=== PATIENT | female | born 1945 | race Caucasian/White ===

== ENCOUNTER 2017-11-13 13:49 | Inpatient (IN) | payer MEDICARE, MEDICAID ==
--- NOTE | 2017-11-13 14:12 | ED Physician Chart ---
ED Chief Complaint/HPI - Patient Information Date Seen:: 11/13/17 Time Seen:: 14:00 Chief Complaint:: Agitation History of Present Illness:: onset x 3 days of agitation and hostile behavior; no report of trauma, H/As, neck pain, C/P, SOB, Abd. Pain, SIs, A/N/V/D/C, fever, chills, or urinary s/s Historian:: Patient, EMS Review:: Nurse's Note Reviewed, Old Chart Reviewed, EMS run form Reviewed ED Review of Systems - Review of Systems General/Constitutional: No fever, No chills, No weight loss, No weakness, No diaphoresis, No edema, No loss of appetite Skin: No skin lesions, No rash, No bruising Head: No headache, No light-headedness Eyes: No loss of vision, No pain, No diplopia ENT: No earache, No nasal drainage, No sore throat, No tinnitus Neck: No neck pain, No swelling, No thyromegaly, No stiffness, No mass noted Cardio Vascular: No chest pain, No palpitations, No PND, No orthopnea, No edema Pulmonary: No SOB, No cough, No sputum, No wheezing GI: No nausea, No vomiting, No diarrhea, No pain, No melena, No hematochezia, No constipation, No hematemesis G/U: No dysuria, No frequency, No hematuria, No nacturia Hyperion Administrator: No vaginal discharge, No abnormal vaginal bleed, No contraction Musculoskeletal: No bone or joint pain, No back pain, No muscle pain Endocrine: No polyuria, No polydipsia Psychiatric: Prior psych history, Depression, Anxiety, No suicidal ideation, No homicidal ideation, No auditory hallucination, No visual hallucination Hematopoietic: No bruising, No lymphadenopathy Allergic/Immuno: No urticaria, No angioedema Neurological: No syncope, No focal symptoms, No weakness, No paresthesia, No headache, No seizure, No dizziness, No confusion, No vertigo ED Past Medical History - Past Medical History Obtainable: Yes Past Medical History: HTN, Asthma/COPD, Dyslipidemia, PUD/GERD Family History: HTN Social History: Non Smoker, No Alcohol, No Drug Use, Single, Care Facility Surgical History: None Psychiatricy History: Depression, Bipolar Medication: Reviewed Family Medical History - Family Member Mother History Unknown: Yes ED Physical Exam - Physical Examination General/Constitutional: Awake, Well-developed, well-nourished, Alert, No distress, GCS 15, Non-toxic appearing, Ambulatory Head: Atraumatic Eyes: Lids, conjuctiva normal, PERRL, EOMI Skin: Nl inspection, No rash, No skin lesions, No ecchymosis, Well hydrated, No lymphadenopathy ENMT: External ears, nose nl, TM canals nl, Nasal exam nl, Lips, teeth, gums nl , Oropharynx nl, Tonsils nl Neck: Nontender, Full ROM w/o pain, No JVD, No nuchal rigidity, No bruit, No mass, No stridor Respiratory: Nl effort/Exclusion, Clear to Auscultation, No Wheeze/Rhonchi/Rales Cardio Vascular: RRR, No murmur, gallop, rubs, NL S1 S2, Carotid/Femoral/Distal pulses equal bilaterally GI: No tenderness/rebounding/guarding, No organomegaly, No hernia, Normal BS's, Nondistended, No mass/bruits, No McBurney tenderness : No CVA tenderness Extremities: No tenderness or effusion, Full ROM, normal strength in all extremities, No edema, Normal digits & nails Neuro/Psych: Alert/oriented, DTR's symmetric, Normal sensory exam, Normal motor strength, Judgement/insight normal, Mood normal, Normal gait, No focal deficits Other Neuro/Psych comments:: + Psychomotor Agitation; no SIs; Mood/Affect: Labile Misc: Normal back, No paraspinal tenderness ED Labs/Radiology/EKG Results - Lab Results Comments:: unremarkable - EKG Interpretations EKG Time:: 14:45 Rate & Rhythm: 92; NSR Comments:: non-specific st-t changes ED Septic Shock - . Is Septic Shock (SBP<90, OR Lactate>4 mmol\L) present?: No ED Reassessment (Disposition) - Reassessment Reassessment Condition:: Improved - Diagnosis Diagnosis:: Agitation; Psychosis; Medical Clearance; Bipolar Disorder; - Aftercare/Follow up Instructions Aftercare/Follow-Up Instructions:: Counseled pt regarding lab results/diagnosis & need follow up, Counseled pt & family regarding lab results/diagnosis & need follow up - Patient Disposition Discharge/Transfer:: Acute Care w/in this hosp Admitted to:: [facility] Condition at Disposition:: Stable, Improved
[2017-11-13 14:40] LABS: % BASOPHILS 0.4 % (0.0-2.0); % LYMPHOCYTES 31.9 % (20.0-50.0); % MONOCYTES 7.3 % (2.0-10.0); % NEUTROPHILS 55.4 % (40.0-80.0); EOSINOPHILE ABSOLUTE 0.3 Th/cmm (0.1-0.4); HEMATOCRIT 39.6 % (41.0-60); HEMOGLOBIN 13.3 gm/dL (12-16); LYMPHOCYTE ABSOLUTE 2.1 Th/cmm (1.5-3.0); MEAN CELL VOLUME 86.9 fl (81-100); MEAN CORPUSCULAR HEMOGLOBIN 29.1 pg (27.0-31.0); MEAN CORPUSCULAR HGB CONC 33.5 pg (28.0-36.0); MEAN PLATELET VOLUME 10.1 fl; MONOCYTE ABSOLUTE 0.5 Th/cmm (0.3-1.0); NEUTROPHILE ABSOLUTE 3.7 Th/cmm (1.8-8.0); PLATELET COUNT 172 Th/cmm (150-400); RED BLOOD COUNT 4.56 Mil/cmm (3.80-5.20); RED CELL DISTRIBUTION WIDTH 13.7 % (11.5-20.0); WHITE BLOOD COUNT 6.6 Th/cmm (4.8-10.8)
[2017-11-13 14:57] LABS: ALB/GLOB RATIO 1.5 (1.0-1.8); ALKALINE PHOSPHATASE 46 U/L (34-104); ANION GAP 11.9 (7.0-16.0); BILIRUBIN,TOTAL 0.5 mg/dL (0.3-1.0); BUN - UREA NITROGEN 34 mg/dL (7-25); CALCIUM SERUM 9.7 mg/dL (8.6-10.3); CARBON DIOXIDE 23.6 mEq/L (21.0-31.0); CHLORIDE 108 mEq/L (98-107); CHOLESTEROL 185 mg/dL (<200); CREATININE - SERUM 1.3 mg/dL (0.6-1.2); GLUCOSE 85 mg/dL (70-105); HDL -HIGH DENSITY LIPOPROTEIN 52 mg/dL (23-92); POTASSIUM SERUM 4.5 mEq/L (3.5-5.1); SGOT 11 U/L (13-39); SGPT/ALT 9 U/L (7-52); SODIUM SERUM 139 mEq/L (136-145); TOTAL PROTEIN,SERUM 6.7 gm/dL (6.0-8.3); TRIGLYCERIDES 121 mg/dL (<150)
[2017-11-13 15:00] LABS: ACETAMINOPHEN < 10.0 ug/mL (10.0-30.0); SALICYLATES (ASPIRIN) < 25.0 mg/L (30.0-100.0)
[2017-11-13] MEDS ORDERED: Magnesium Hydroxide (MOM) 30 mL UDC PO PRN ×2 (17:27→17:31)
[2017-11-13] MEDS ORDERED: Maalox 30 mL Cup PO PRN (17:27)
[2017-11-13 17:37] VITALS: BP 108/76
[2017-11-13 22:15] LABS: A1C % 5.5 % (4.0-6.0)
[2017-11-14] MEDS: Pantoprazole 40 mg EC Tab PO SCH (06:47)
[2017-11-14] MEDS ORDERED: Non-Formulary Item 1 EA (Amino Acids/Protein Hydrolys [Pro-Stat Sugar Free Liquid] 30 ML) PO SCH (09:00)
[2017-11-14] MEDS ORDERED: MELOXICAM PO SCH (09:00)
[2017-11-14] MEDS ORDERED: Maalox 30 mL Cup PO PRN (09:38)
[2017-11-14] MEDS: Multivitamin Tab PO SCH (09:41)
[2017-11-14] MEDS: Fish Oil 1,000 MG SGL PO SCH (09:41)
--- NOTE | 2017-11-14 20:44 | History & Physical ---
ADMIT DATE: 11/13/2017 INTERNAL MEDICINE CONSULTATION HISTORY OF PRESENT ILLNESS: The patient is a 72-year-old female, patient of mine, seen at [facility]. PAST MEDICAL HISTORY: Significant for peptic ulcer disease, gastritis, arthritis, osteoporosis and coronary artery disease. SOCIAL HISTORY: No history of smoking, alcohol abuse. FAMILY HISTORY: Not available. REVIEW OF SYSTEMS: The patient has no chest pain, no short of breath. No nausea, no vomiting, no abdominal pain, no urinary symptoms. PHYSICAL EXAMINATION: GENERAL: Average female, in obvious respiratory distress. VITAL SIGNS: Include a blood pressure of 110/70, heart rate 80, respiration rate of 18. SKIN: Show no cellulitis. HEENT: Normal conjunctivae. NECK: Supple. LUNGS: Clear. HEART: First and second present. ABDOMEN: Soft, minimal epigastric tenderness. Bowel sounds present. EXTREMITIES: Show arthritis. NEUROLOGIC: The patient has dementia. LABORATORY DATA: White count 6.6, hemoglobin 13.3, hematocrit 39.6, platelet count 172. Sodium 139, potassium 4.1, chloride 108, bicarb 23.6, BUN 34, creatinine of 1.3, glucose of 85. Troponins are negative. Cholesterol is normal. MEDICAL DIAGNOSES: Include peptic ulcer disease, gastritis, arthritis, osteoporosis, coronary artery disease, and chronic kidney disease. CURRENT MEDICINES: Include Tylenol, Maalox, Dulcolax, Os-Willy, Colace, omega-3, Protonix, risperidone. JOB# [id number]
--- NOTE | 2017-11-15 02:55 | Psychosocial Evaluation ---
DATE OF SERVICE: 11/13/2017 IDENTIFYING DATA: The patient is a 72-year-old woman, resident of ____ was sent home. Information obtained by directly interviewing the patient as well as reviewing the admission papers. JUSTIFICATION FOR HOSPITALIZATION: The patient is admitted here for acute agitation. CHIEF COMPLAINT: "I don't know. I am not able to sleep." HISTORY OF PRESENT ILLNESS: This is the first psychiatric hospitalization to [facility] to [facility] for this patient who is reported to have been getting easily agitated at the residential facility and the patient could not be contained and the patient has to be admitted over here for stabilization because the patient is not stabilized in the lower level of care. Chart is reviewed. The patient is interviewed. The patient is reported to have been valproic acid and Risperdal. The patient has been having difficult time to cope with the stress. The patient is reported to be on Risperdal and Depakote and has been able to tolerate the medications. No major side effects to the medications are noted. However, the patient has been complaining that she is not able to fall asleep and losing her appetite. The patient is reported to be also wondering and when redirected patient has been getting easily upset. PAST PSYCHIATRIC HISTORY: Details are not known. MEDICAL HISTORY: Physical examination is requested by Dr. Hicks. SUBSTANCE ABUSE HISTORY: None. PHYSICAL OR SEXUAL ABUSE HISTORY: None. LEGAL PROBLEMS: None at this time. STRENGTH AND ASSETS: The patient is motivated. MENTAL STATUS EXAMINATION: The patient is a 72-year-old, looking her stated age, superficially cooperative. Eye contact is poor. Mood is noted to be irritable. Affect is constricted. Insight and judgment at this time are noted to be impaired. Impulse control seems to be poor. Coping skills are also noted to be very poor. The patient has been having difficult time to cope with the stress. The patient has paranoia, but denies any command hallucinations. No visual hallucinations are reported. The patient's short and long-term are noted to be impaired. DIAGNOSTIC IMPRESSION: AXIS I: Psychotic disorder, not otherwise specified. AXIS IB. Dementia and behavioral changes, secondary to it. AXIS II: None. AXIS II: As per Dr. Hicks. IMMEDIATE TREATMENT PLAN: The patient is going to be observed on the inpatient unit, probably with supportive psychotherapy. The patient is going to be closely monitored. Encouraged to verbalize the concerns. Once stabilized, the patient is going to be discharged to self to be followed up on an outpatient basis. JOB# [id number]
[2017-11-15] MEDS: Pantoprazole 40 mg EC Tab PO SCH (06:32)
[2017-11-15] MEDS: Fish Oil 1,000 MG SGL PO SCH (09:34)
[2017-11-15] MEDS: Multivitamin Tab PO SCH (09:36)
--- NOTE | 2017-11-15 23:28 | Consultation ---
DATE OF CONSULTATION: 11/15/2017 REFERRING PHYSICIAN: Shama Cisse MD TYPE OF CONSULTATION: Psychology. HISTORY OF PRESENT ILLNESS: The patient is a 72-year-old female. The following is by review of the medical record as well as by the patient's self-report. The patient is being admitted due to acute agitation. The patient is a resident of [facility]. The patient has poor insight into her illness and does not understand why she is being hospitalized. The staff at the patient's residential facility report that she had been getting easily agitated with the staff. The patient denied any suicidal ideation, plan or intention. The patient was complaining about poor sleep. The patient appears to be confused about the hospital admission as well as her medical and psychiatric history. PAST MEDICAL HISTORY: Please see history and physical by Dr. Hicks. PAST PSYCHIATRIC HISTORY: Records are unavailable at the time of this clinical interview. SUBSTANCE ABUSE HISTORY: The patient did not answer this question. PSYCHOSOCIAL HISTORY: The patient did not answer questions about occupational or educational history or confucianist affiliation. The patient did not answer questions about physical or sexual abuse history. The patient stated no current legal problems or issues. The patient is a resident of [facility]. MENTAL STATUS EXAMINATION: The patient appears to be her stated age. The patient's attitude is superficially cooperative. Eye contact is poor. Speech is slow and delayed. Mood is irritable. Affect is constricted. The patient denied any auditory or visual hallucinations. The patient denied any suicidal ideation, plan or intention. The patient seems to have paranoid ideation. This needs further evaluation. The patient was unable to repeat 3 items given to her first and second time. The patient was unable to recall any of the 3 items given. The patient could not give her correct date of , although she did give her correct age. The patient really did not respond to the other questions to assess for a long-term memory. Short term memory and immediate memory are impaired. Long-term memory is possibly impaired. Sensorium is alert and oriented to self only. The patient's impulse control is limited. Concentration is poor. The patient did not participate in the interpretation of proverbs. Insight is poor. Judgment is poor. DIAGNOSTIC IMPRESSION: Hayden I: 1. Psychotic disorder, not otherwise specified. 2. Dementia with behavioral disturbance. Hayden II: Deferred. Hayden III: Per Dr. Hicks. TREATMENT PLAN: The patient has been seen by Dr. Cisse for psychiatric evaluation and for the management of the patient's psychotropic medications. We will provide supportive psychotherapy to include reality orientation, differentiation and integration. We will provide coping strategies for phase of life issues. We will provide motivational enhancement for the patient to become compliant and stay compliant with all aspects of the patient's care and treatment plan. We will encourage the patient to contract for safety as well as demonstrate emotional and self-regulation prior to discharge. Thank you, Dr. Cisse for this consult and the opportunity to participate in this patient's care. JOB# [id number] AVISHALI
--- NOTE | 2017-11-16 05:03 | Progress Notes ---
DATE: 11/15/2017 PSYCHIATRIC PROGRESS NOTE SUBJECTIVE: Staff was spoken to. The patient is interviewed. Mood is noted to be irritable. Affect is constricted. Insight and judgment at this time are noted to be still impaired. Impulse control is noted to be limited. The patient has paranoia, but denies any command hallucinations. The patient is currently on risperidone 1 mg b.i.d. and the patient is going to be closely monitored. The patient's valproic acid is at 250 mg twice a day. ASSESSMENT: The patient is still paranoid and impulsive. PLAN: To continue the patient with the supportive therapy and closely monitor the patient. JOB# [id number]
[2017-11-16] MEDS: Pantoprazole 40 mg EC Tab PO SCH (06:32)
[2017-11-16] MEDS: Multivitamin Tab PO SCH (08:56)
[2017-11-16] MEDS: Fish Oil 1,000 MG SGL PO SCH (08:56)
--- NOTE | 2017-11-16 16:15 | Progress Notes ---
DATE: 11/16/2017 SUBJECTIVE: Staff was spoken to. The patient is interviewed. Mood is noted to be anxious ____. Insight and judgment at this time are noted to be still impaired. Impulse control is noted to be poor. Coping skills has been noted to be very paranoid. No side effects to the medications are noted. The patient is currently on Risperdal 1 mg b.i.d. and valproic acid 1 mg b.i.d. and the patient is not presenting with any of the EPS and hence we decided to discontinue the benztropine and follow the patient with the supportive therapy. ASSESSMENT AND PLAN: Please note that the patient is still paranoid and agitated and not ready to be discharged to a lower level of care yet. JOB# [id number]
--- NOTE | 2017-11-17 06:25 | Progress Notes ---
DATE: 11/16/2017 INTERNAL MEDICINE CONSULTATION FOLLOWUP SUBJECTIVE: Seen at [facility]. The patient had no chest pain, no shortness of breath, no nausea, no vomiting, no melena, no hematochezia. OBJECTIVE: VITAL SIGNS: Stable. LUNGS: Clear. HEART: First and second present. ABDOMEN: Soft. Bowel sounds good. EXTREMITIES: Show arthritis. NEUROLOGIC: The patient has dementia. MEDICAL DIAGNOSES: Remain the same as arthritis, peptic ulcer disease, osteoporosis, coronary artery disease. Psych consult reviewed. Continue the current medical management. JOB# [id number]
[2017-11-17] MEDS: Pantoprazole 40 mg EC Tab PO SCH (06:38)
[2017-11-17] MEDS: Fish Oil 1,000 MG SGL PO SCH (09:17)
[2017-11-17] MEDS: Multivitamin Tab PO SCH (09:17)
--- NOTE | 2017-11-17 19:45 | Progress Notes ---
DATE: 11/17/2017 SUBJECTIVE: Staff was spoken to. The patient is interviewed. Mood is noted to be irritable. Affect is constricted. Impulse control seems to be improving at this time. The patient, however, is noted to be getting easily frustrated. Paranoid delusions are noted, but the patient denies any command hallucinations. No major side effects to the medications are noted. The patient's sleep and appetite are noted to be improving. ASSESSMENT: The patient is still paranoid. PLAN: To continue the patient with the supportive therapy and followup. JOB# [id number]
--- NOTE | 2017-11-17 22:25 | Progress Notes ---
DATE: 11/17/2017 This is a progress note for Internal Medicine consultation SUBJECTIVE: The patient is a 72-year-old female seen at [facility]. This is progress note for Internal Medicine consultation. No new symptoms. No chest pain, no shortness of breath, no nausea, no vomiting. OBJECTIVE: GENERAL: The patient is very confused. VITAL SIGNS: Stable. LUNGS: Clear. HEART: First and second present. ABDOMEN: Soft, bowel sounds present. EXTREMITIES: Show arthritis. NEUROLOGIC: The patient awake, no focal motor deficit. MEDICAL DIAGNOSES: Remain the same, coronary artery disease, peptic ulcer disease, arthritis, osteoporosis. TREATMENT PLAN: Continue medicines as per JUL. Psych consult reviewed. End of the Internal Medicine consult. The patient will follow up. JOB# [id number]
[2017-11-18] MEDS: Pantoprazole 40 mg EC Tab PO SCH (06:40)
[2017-11-18] MEDS: Multivitamin Tab PO SCH (09:32)
[2017-11-18] MEDS: Fish Oil 1,000 MG SGL PO SCH (09:33)
--- NOTE | 2017-11-19 00:01 | Progress Notes ---
DATE: 11/18/2017 INTERNAL MEDICINE CONSULT The patient is a 72-year-old female. CURRENT MEDICAL PROBLEMS: Coronary artery disease, peptic ulcer disease, arthritis, osteoporosis, no new symptoms. PHYSICAL EXAMINATION: VITAL SIGNS: Stable. LUNGS: Clear. HEART: First and second present. ABDOMEN: Soft. Bowel sounds present and good. EXTREMITIES: Show arthritis. NEUROLOGIC: The patient has dementia. MEDICAL DIAGNOSES: As I dictated above. MANAGEMENT: Continue current medical management. Psych consult reviewed. JOB# [id number]
--- NOTE | 2017-11-19 02:12 | Progress Notes ---
DATE: 11/18/2017 SUBJECTIVE: Staff was spoken to. The patient is interviewed. Mood is noted to be irritable. Affect is constricted. The patient has paranoia, but denies any command hallucinations, mood swings are a concern at this time. The patient is getting easily frustrated and stating that she should not be in here, she should be at home. ASSESSMENT: The patient is still impulsive and paranoid. PLAN: To continue the patient with the supportive therapy and followup. JOB# [id number]
[2017-11-19] MEDS: Pantoprazole 40 mg EC Tab PO SCH (06:46)
[2017-11-19] MEDS: Multivitamin Tab PO SCH (08:49)
[2017-11-19] MEDS: Fish Oil 1,000 MG SGL PO SCH (08:49)
[2017-11-20] MEDS: Pantoprazole 40 mg EC Tab PO SCH (06:34)
[2017-11-20] MEDS: Multivitamin Tab PO SCH (09:38)
[2017-11-20] MEDS: Fish Oil 1,000 MG SGL PO SCH (09:38)
--- NOTE | 2017-11-20 15:31 | Progress Notes ---
DATE: 11/19/2017 INTERNAL MEDICINE CONSULTATION PROGRESS The patient is a 72-year-old female seen at [facility]. PAST MEDICAL HISTORY: Significant for coronary artery disease, peptic ulcer disease, arthritis, osteoporosis. CHIEF COMPLAINT: No new symptoms. OBJECTIVE: VITAL SIGNS: Stable. LUNGS: Clear. HEART: First and second present. ABDOMEN: Soft. Bowel sounds are good. EXTREMITIES: Show arthritis. NEUROLOGIC: No focal deficit. MEDICAL DIAGNOSIS: Remain the same. PLAN: Continue current management. Discussed with social sciences instructor Judith regarding discharge placement. Conservators have agreed. The patient be transferred to [facility] to [facility]. JOB# [id number]
--- NOTE | 2017-11-20 23:28 | Progress Notes ---
DATE: 11/20/2017 PSYCHIATRIC PROGRESS NOTE SUBJECTIVE: Staff was spoken to. The patient is interviewed. Mood is irritable. Affect is constricted. Coping skills are noted poor at this time. The patient has been getting easily frustrated. The patient has been informed that we are trying to get in touch with her ____ for placement. The patient has not been able to understand. ASSESSMENT AND PLAN: The patient is agitated and paranoid at this time. Provided the patient with supportive therapy. Encouraged the patient to verbalize the concerns rather than to act out. JOB# [id number]
--- NOTE | 2017-11-21 02:26 | Consultation ---
DATE OF CONSULTATION: 11/20/2017 INTERNAL MEDICINE CONSULTATION SUBJECTIVE: A 72-year-old female. CHIEF COMPLAINT: No chest pain, no short of breath. No nausea, no vomiting, no abdominal pain, no recent fall. No acute infection. OBJECTIVE: VITAL SIGNS: Stable. LUNGS: Clear. HEART: First and second present. ABDOMEN: Soft. Bowel sounds are good. MUSCULOSKELETAL: Show arthritis. NEUROLOGICAL: The patient has had dementia. MEDICAL DIAGNOSES: Include coronary artery disease, peptic ulcer disease, gastritis, arthritis, osteoporosis. TREATMENT PLAN: Continue current medical management. Psych consult reviewed. The patient will followup JOB# [id number]
[2017-11-21] MEDS: Pantoprazole 40 mg EC Tab PO SCH (06:50)
[2017-11-21] MEDS: Fish Oil 1,000 MG SGL PO SCH (08:43)
[2017-11-21] MEDS: Multivitamin Tab PO SCH (08:44)
--- NOTE | 2017-11-21 19:23 | Progress Notes ---
DATE: 11/21/2017 SUBJECTIVE: Staff was spoken to. The patient is interviewed. Mood is noted to be anxious. The patient is isolative and withdrawn. Coping skills are noted to be still improving. No side effects to medications are noted. The patient is currently on Risperdal 1 mg twice a day along with valproic acid 250 mg twice a day and has been able to tolerate it. No side effects to the medications are noted. Mood swings are coming under control. We are waiting for a letter from the conservator with regards to placement of this patient. ASSESSMENT: The patient's mood swings are coming under control. Awaiting placement. PLAN: To continue the patient with the supportive therapy and followup. [facility]# [id number]
--- NOTE | 2017-11-21 22:26 | Progress Notes ---
DATE: 11/21/2017 INTERNAL MEDICINE CONSULTATION FOLLOWUP CHIEF COMPLAINT: No new symptoms. No chest pain, no short of breath. No nausea, no vomiting, no abdominal pain. OBJECTIVE: On examination, GENERAL: An elderly female, in no obvious respiratory distress. VITAL SIGNS: Blood pressure 110/70, heart rate 88, respiration rate of 18. SKIN: Shows no cellulitis. HEENT: Normal conjunctivae. NECK: Supple. LUNGS: Clear. HEART: First and second present. ABDOMEN: Soft. Bowel sounds present. EXTREMITIES: Show arthritis. NEUROLOGIC: The patient has dementia. MEDICAL DIAGNOSES: Coronary artery disease, peptic ulcer disease, gastritis, arthritis, osteoporosis. TREATMENT PLAN: Continue on the current management. Psych consult reviewed. JOB# [id number]
[2017-11-22] MEDS: Pantoprazole 40 mg EC Tab PO SCH (06:36)
[2017-11-22] MEDS: Multivitamin Tab PO SCH (08:59)
[2017-11-22] MEDS: Fish Oil 1,000 MG SGL PO SCH (08:59)
--- NOTE | 2017-11-23 04:12 | Progress Notes ---
DATE: 11/22/2017 INTERNAL MEDICINE FOLLOWUP CONSULTATION The patient is a 72-year-old, seen at [facility]. CHIEF COMPLAINT: No chest pain, no short of breath. No nausea, no vomiting, no abdominal pain. No fall, no acute infection. PHYSICAL EXAMINATION: VITAL SIGNS: Stable. LUNGS: Clear. HEART: First and second present. ABDOMEN: Soft. Bowel sounds good. EXTREMITIES: Show arthritis. NEUROLOGIC: The patient has no focal motor deficits. MEDICAL DIAGNOSES: Include history of hypertension, history of coronary artery disease, peptic ulcer disease, gastritis, arthritis, history of CPA, chronic obstructive pulmonary disease, history of chronic kidney disease. The patient will continue medicines as per MAR, psych consult noted. [facility]# [id number]
--- NOTE | 2017-11-23 04:36 | Progress Notes ---
DATE: 11/22/2017 PSYCHIATRIC PROGRESS NOTE SUBJECTIVE: Staff was spoken to. The patient is interviewed. Mood is noted to be irritable. Affect is constricted. The patient is getting frustrated for being in here. The patient has been informed that she is going to be discharged once we get the paper from the conservator. The patient has no insight into her illness. Coping skills at this time are noted to be still poor. ASSESSMENT: The patient is still impulsive. PLAN: Continue the patient with the supportive therapy. I encouraged the patient to verbalize the concerns rather than to act out. JOB# [id number]
[2017-11-23] MEDS: Pantoprazole 40 mg EC Tab PO SCH (06:46)
[2017-11-23] MEDS: Fish Oil 1,000 MG SGL PO SCH (09:52)
[2017-11-23] MEDS: Multivitamin Tab PO SCH (09:58)
--- NOTE | 2017-11-24 00:02 | Progress Notes ---
DATE: 11/23/2017 PSYCHIATRIC PROGRESS NOTE SUBJECTIVE: Staff was spoken to. The patient is interviewed. Mood is noted to be irritable. Affect is constricted. Insight and judgment are noted to be still impaired. Impulse control is noted to be improving. No side effects to the medications are noted. The patient has been paranoid and has been demanding that she should be discharged. The patient has been again clearly informed of the paperwork that we are waiting on. The patient is currently on Risperdal and Depakote and has been able to tolerate the medication. ASSESSMENT: The patient's impulsivity is coming under control. PLAN: To continue the patient with the supportive therapy and await for the paperwork from the public guardian for placement of this patient. JOB# [id number]
--- NOTE | 2017-11-24 02:46 | Progress Notes ---
DATE: 11/23/2017 INTERNAL MEDICINE CONSULTATION FOLLOWUP CHIEF COMPLAINT: No chest pain, no short of breath, no nausea, and no vomiting. The patient is currently under psych treatment. OBJECTIVE: VITAL SIGNS: Stable. LUNGS: Clear. HEART: First and second present. ABDOMEN: Soft. Bowel sounds are present. EXTREMITIES: Show arthritis. NEUROLOGIC: The patient has dementia. MEDICAL DIAGNOSES: Include chronic obstructive pulmonary disease, hypertension, chronic kidney disease, coronary artery disease, peptic ulcer disease, arthritis, and osteoporosis. TREATMENT PLAN: Continue current medical management. Continue psych medicines. JOB# [id number]
[2017-11-24] MEDS: Pantoprazole 40 mg EC Tab PO SCH (06:44)
[2017-11-24] MEDS: Multivitamin Tab PO SCH (09:15)
[2017-11-24] MEDS: Fish Oil 1,000 MG SGL PO SCH (09:16)
--- NOTE | 2017-11-24 18:04 | Progress Notes ---
DATE: 11/24/2017 INTERNAL MEDICINE CONSULTATION FOLLOWUP No new symptom. PHYSICAL EXAMINATION: VITAL SIGNS: Stable. LUNGS: Clear. HEART: First and second present. ABDOMEN: Soft. Bowel sounds appeared good. EXTREMITIES: Show arthritis. NEUROLOGIC: The patient has no focal motor deficit. MEDICAL DIAGNOSIS: Remains same; history of hypertension, chronic obstructive pulmonary disease, coronary artery disease, peptic ulcer disease, gastritis, arthritis, and anemia. TREATMENT PLAN: Continue current medical treatment. Psych consult reviewed. JOB# [id number]
--- NOTE | 2017-11-24 23:08 | Progress Notes ---
DATE: 11/24/2017 PSYCHIATRIC PROGRESS NOTE SUBJECTIVE: Staff was spoken to. The patient is interviewed. Mood is noted to be dysphoric. Coping skills are noted to be still poor. The patient has been getting easily frustrated. Insight and judgment are noted to be still impaired. Impulse control seems to be improving. The patient has paranoia, but denies any command hallucinations. Mood swings are coming under control. No side effects to the medications are noted. The patient is currently on Risperdal and Depakote and has been able to tolerate the medication. The patient is awaiting placement and we are awaiting from the public guardian's office for the approval for the patient to be placed. ASSESSMENT: The patient is stabilizing. PLAN: To continue the patient with the supportive therapy and followup. JOB# [id number]
[2017-11-25] MEDS: Pantoprazole 40 mg EC Tab PO SCH (06:53)
[2017-11-25] MEDS: Fish Oil 1,000 MG SGL PO SCH (10:00)
[2017-11-25] MEDS: Multivitamin Tab PO SCH (10:01)
--- NOTE | 2017-11-26 00:16 | Progress Notes ---
DATE: 11/25/2017 PSYCHIATRIC PROGRESS NOTE SUBJECTIVE: Staff was spoken to. The patient is interviewed. Mood is noted to be anxious. Affect is appropriate. Not suicidal or homicidal. Insight and judgment are noted to be fair. Impulse control is also noted to be fair. No side effects to the medications are noted. The patient has been able to verbalize the concerns rather than to act out. ASSESSMENT: The patient is stabilizing. PLAN: To discharge the patient today for followup on an outpatient basis. JOB# [id number]
== END 2017-11-25 17:30 | DRG 884 ==
LOC: ER 13:49 → EDBD 13:49 → GERO2 15:28
PROVIDERS: ADMIT Psychiatry & Neurology Psychiatry; ATTEND Psychiatry & Neurology Psychiatry
DX: F03.91 Unspecified dementia, unspecified severity, with behavioral disturbance (principal); N18.9 Chronic kidney disease, unspecified; K27.9 Peptic ulcer, site unspecified, unspecified as acute or chronic, without hemorrhage or perforation; M19.90 Unspecified osteoarthritis, unspecified site; I25.10 Atherosclerotic heart disease of native coronary artery without angina pectoris; F29 Unspecified psychosis not due to a substance or known physiological condition; J44.9 Chronic obstructive pulmonary disease, unspecified; E78.5 Hyperlipidemia, unspecified; K21.9 Gastro-esophageal reflux disease without esophagitis; M81.0 Age-related osteoporosis without current pathological fracture; K29.70 Gastritis, unspecified, without bleeding; I12.9 Hypertensive chronic kidney disease with stage 1 through stage 4 chronic kidney disease, or unspecified chronic kidney disease; Z82.49 Family history of ischemic heart disease and other diseases of the circulatory system
CPT/HCPCS: 36415-UA; 80053-TC; 80061-TC; 80320-TC; 80329-TC; 83036-90; 84443-TC; 84484-TC; 85025-TC; 86592-TC; 93005; Z7610

== ENCOUNTER 2017-12-03 21:56 | Inpatient (IN) | payer MEDICARE, MEDICAID ==
[2017-12-03 22:48] LABS: HEMATOCRIT 37.4 % (41.0-60); HEMOGLOBIN 12.4 gm/dL (12-16); MEAN CELL VOLUME 87.8 fl (81-100); MEAN CORPUSCULAR HEMOGLOBIN 29.1 pg (27.0-31.0); MEAN CORPUSCULAR HGB CONC 33.2 pg (28.0-36.0); MEAN PLATELET VOLUME 9.3 fl; PLATELET COUNT 188 Th/cmm (150-400); RED BLOOD COUNT 4.25 Mil/cmm (3.80-5.20); RED CELL DISTRIBUTION WIDTH 14.1 % (11.5-20.0)
[2017-12-03 23:02] LABS: INR 1.14 (0.5-1.4)
[2017-12-03 23:07] LABS: ALB/GLOB RATIO 1.5 (1.0-1.8); ALBUMIN 3.9 gm/dL (3.7-5.3); ALKALINE PHOSPHATASE 32 U/L (34-104); ANION GAP 10.6 (7.0-16.0); BILIRUBIN,TOTAL 0.4 mg/dL (0.3-1.0); BUN - UREA NITROGEN 26 mg/dL (7-25); CALCIUM SERUM 9.7 mg/dL (8.6-10.3); CHLORIDE 104 mEq/L (98-107); CHOLESTEROL 184 mg/dL (<200); CREATININE - SERUM 1.1 mg/dL (0.6-1.2); GLUCOSE 97 mg/dL (70-105); HDL -HIGH DENSITY LIPOPROTEIN 46 mg/dL (23-92); POTASSIUM SERUM 4.6 mEq/L (3.5-5.1); SGOT 11 U/L (13-39); SGPT/ALT 9 U/L (7-52); SODIUM SERUM 135 mEq/L (136-145); TOTAL PROTEIN,SERUM 6.5 gm/dL (6.0-8.3); TRIGLYCERIDES 103 mg/dL (<150)
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
[2017-12-03 23:46] VITALS: BP 135/68
[2017-12-03] MEDS ORDERED: Magnesium Hydroxide (MOM) 30 mL UDC PO PRN (23:47)
[2017-12-03] MEDS ORDERED: Maalox 30 mL Cup PO PRN (23:47)
[2017-12-03 23:54] LABS: BAND NEUTROPHILE 1 % (0-10); EOSINOPHIL 4 % (0-5); LYMPHOCYTE 46 % (20-50); MONOCYTE 6 % (2-10); NEUTROPHILS 43 % (40-80); PLATELET ESTIMATE ADEQUATE (NORMAL)
[2017-12-04 01:33] LABS: ESR SEDIMENTATION SED RATE 10 mm/hr (0-30)
[2017-12-04] MEDS: Multivitamin Tab PO SCH (08:30)
[2017-12-04] MEDS ORDERED: Magnesium Hydroxide (MOM) 30 mL UDC PO PRN (12:38)
[2017-12-04] MEDS ORDERED: Maalox 30 mL Cup PO PRN ×2 (12:38)
--- NOTE | 2017-12-04 20:15 | History & Physical ---
ADMIT DATE: 12/03/2017 INTERNAL MEDICINE CONSULTATION The patient is a 72-year-old female, me being the primary care physician. PAST MEDICAL HISTORY: Significant for history of hypertension, coronary artery disease, chronic kidney disease, peptic ulcer disease, gastritis, arthritis, osteoporosis. SOCIAL HISTORY: No smoking or alcohol abuse. FAMILY HISTORY: Not available. REVIEW OF SYSTEMS: No chest pain, no short of breath. No nausea, no vomiting, no abdominal pain. The patient had extensive arthritic pain. No recent fall. PHYSICAL EXAMINATION: VITAL SIGNS: Stable. LUNGS: Clear. HEART: First and second present. ABDOMEN: Soft. Bowel sounds present. EXTREMITIES: Show arthritis. NEUROLOGIC: The patient has dementia. LABORATORY DATA: White count of 6, hemoglobin 12.4, hematocrit 37.4, platelet count of 188. Sodium 135, potassium 4.6, chloride 104, bicarbonate 25, BUN 26, creatinine of 1.1, glucose 97. MEDICAL DIAGNOSES: As dictated, hypertension, coronary artery disease, chronic kidney disease, peptic ulcer disease, gastritis, arthritis, osteoporosis. CURRENT MEDICATIONS: Include Maalox, Protonix, Tylenol, Ambien p.r.n. Thank you, Dr. Cisse for letting me see your patient. JOB# [id number]
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
[2017-12-05] MEDS ORDERED: Pantoprazole 40 mg EC Tab PO SCH (09:00)
[2017-12-05] MEDS: Docusate Sodium/Senna Tab PO SCH (09:09)
[2017-12-05] MEDS: Pantoprazole 40 mg EC Tab PO SCH (09:09)
[2017-12-05] MEDS: Multivitamin Tab PO SCH (09:10)
[2017-12-05] MEDS: Fish Oil 1,000 MG SGL PO SCH (09:10)
--- NOTE | 2017-12-05 19:48 | Progress Notes ---
DATE: 12/05/2017 SUBJECTIVE: Staff was spoken to. The patient is interviewed. Mood is noted to be irritable. Affect is constricted. The patient is confused. The confusion is more so towards the evening. The patient has paranoid delusions, but denies any command hallucinations. The patient's aggressive behavior is being closely monitored at this time. The patient is going to be started on 12.5 mg of the Seroquel twice a day and the patient is going to be followed up with the supportive therapy. JOB# [id number]
[2017-12-06] MEDS: Docusate Sodium/Senna Tab PO SCH (09:20)
[2017-12-06] MEDS: Pantoprazole 40 mg EC Tab PO SCH (09:20)
[2017-12-06] MEDS: Multivitamin Tab PO SCH (09:21)
[2017-12-06] MEDS: Fish Oil 1,000 MG SGL PO SCH (09:21)
--- NOTE | 2017-12-06 18:28 | Progress Notes ---
DATE: 12/06/2017 SUBJECTIVE: The patient is a 72-year-old female, no additional symptoms. No chest pain, no shortness of breath. No nausea, no vomiting, no palpitation, no dizziness, no fall. OBJECTIVE: VITAL SIGNS: Stable. LUNGS: Clear. HEART: First and second heart sounds normal. No gallop. present. ABDOMEN: Soft, minimal epigastric tenderness. Bowel sounds present and good. EXTREMITIES: Show arthritis. NEUROLOGIC: The patient has dementia. MEDICAL DIAGNOSES: Remain the same; hypertension, chronic kidney disease, chronic obstructive pulmonary disease, coronary artery disease, peptic ulcer disease, gastritis, arthritis, and anemia. PLAN: We will continue medical management. Psych consult reviewed. JOB# [id number]
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
[2017-12-07] MEDS: Fish Oil 1,000 MG SGL PO SCH (09:02)
[2017-12-07] MEDS: Pantoprazole 40 mg EC Tab PO SCH (09:02)
[2017-12-07] MEDS: Multivitamin Tab PO SCH (09:03)
[2017-12-07] MEDS: Docusate Sodium/Senna Tab PO SCH (09:03)
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
--- NOTE | 2017-12-07 17:21 | Progress Notes ---
DATE: 12/07/2017 DATE OF SERVICE: 12/07/2017 SUBJECTIVE: The patient is a 72-year-old female. No new symptoms. No vomiting, no diarrhea, no melena or hematochezia. OBJECTIVE: VITAL SIGNS: Stable. LUNGS: Clear. HEART: First and second heart sounds are normal. No gallop. . ABDOMEN: Soft. Bowel sounds good. EXTREMITIES: Show arthritis. NEUROLOGIC: The patient has dementia. MEDICAL DIAGNOSES: Remain the same; hypertension, chronic kidney disease, COPD, coronary artery disease, peptic ulcer disease, arthritis, anemia, and dementia. PLAN: Continue current medical management. Psych consult reviewed. JOB# [id number]
--- NOTE | 2017-12-07 17:49 | Progress Notes ---
DATE: 12/07/2017 SUBJECTIVE: Staff was spoken to. The patient is interviewed. Mood is noted to be irritable. Affect is constricted. The patient is getting easily frustrated. Paranoid delusions are noted. Coping skills are noted to be poor. The patient has been having difficult time to cope with the stress. No side effects to the medications are noted. The patient has been placed on the Seroquel and has been able to tolerate the medications. ASSESSMENT AND PLAN: Plan to closely monitor the patient with the Seroquel and I encouraged the patient to verbalize the concerns. The manager rn case is going to be involved and looking for placement for this patient. JOB# [id number]
[2017-12-08] MEDS: Docusate Sodium/Senna Tab PO SCH (09:07)
[2017-12-08] MEDS: Multivitamin Tab PO SCH (09:07)
[2017-12-08] MEDS: Pantoprazole 40 mg EC Tab PO SCH (09:07)
[2017-12-08] MEDS: Fish Oil 1,000 MG SGL PO SCH (09:07)
--- NOTE | 2017-12-08 12:56 | Progress Notes ---
DATE: 12/08/2017 INTERNAL MEDICINE CONSULTATION FOLLOW UP SUBJECTIVE: The patient seen at [facility]. No new symptoms. No chest pain, no short of breath. No nausea, no vomiting, no abdominal pain, no urinary symptoms. OBJECTIVE: VITAL SIGNS: Stable. LUNGS: Shows occasional rhonchi, occasional crepitation, no bronchial breathing. HEART: First and second heart sounds normal. No gallops. S1, S2 are present. ABDOMEN: Soft, minimal epigastric tenderness. Bowel sounds present. EXTREMITIES: Show arthritis. NEUROLOGIC: The patient had dementia. MEDICAL DIAGNOSES: Include hypertension, coronary artery disease, chronic obstructive pulmonary disease, peptic ulcer disease, arthritis, osteoporosis. We will continue current medical management. Psych consult reviewed. [facility]# [id number]
--- NOTE | 2017-12-08 22:13 | Progress Notes ---
DATE: 12/08/2017 PSYCHIATRIC PROGRESS NOTE SUBJECTIVE: Staff was spoken to. The patient is interviewed. Mood is noted to be irritable. Affect is constricted. Coping skills are noted to be poor. The patient has paranoid delusions, but denies any command hallucinations. No side effects to the medications are noted. ASSESSMENT: The patient is still impulsive. PLAN: To continue the patient with Seroquel and follow the patient with the supportive therapy. JOB# [id number]
[2017-12-09] MEDS: Docusate Sodium/Senna Tab PO SCH (09:00)
[2017-12-09] MEDS: Fish Oil 1,000 MG SGL PO SCH (09:00)
[2017-12-09] MEDS: Multivitamin Tab PO SCH (09:00)
[2017-12-09] MEDS: Pantoprazole 40 mg EC Tab PO SCH (09:00)
--- NOTE | 2017-12-09 12:03 | Progress Notes ---
DATE: 12/09/2017 INTERNAL MEDICINE CONSULTATION FOLLOWUP SUBJECTIVE: The patient is a 72-year-old female. No additional complaint. No chest pain, no shortness breath, no nausea, no vomiting, no abdominal pain and chronic joint pain. OBJECTIVE: VITAL SIGNS: Stable. LUNGS: Show rhonchi, crepitation, no bronchial breathing. HEART: First and second heart sounds normal. No murmur, no gallop. S1, S2 present. ABDOMEN: Soft. Bowel sounds are good. EXTREMITIES: Show arthritis. NEUROLOGIC: The patient had no focal motor deficit. MEDICAL DIAGNOSES: Remain the same; hypertension, chronic kidney disease, chronic obstructive pulmonary disease, coronary artery disease, peptic ulcer disease, arthritis, anemia, and osteoporosis. We will continue current medicines. Psych consult reviewed. JOB# [id number]
--- NOTE | 2017-12-10 01:34 | Progress Notes ---
DATE: 12/09/2017 SUBJECTIVE: Staff was spoken to. The patient is interviewed. Mood is noted to be irritable. Affect is constricted. Coping skills are noted to be still poor. Insight and judgment are noted to be limited. The patient has been getting easily frustrated. No side effects to the medications are noted. The patient has paranoid delusions. The patient's correctional case manager has been requested to talk to the care home facility with regard to whether that the patient is going to be accepted back over there or not. ASSESSMENT: The patient is still paranoid. PLAN: To continue the patient with the supportive therapy and followup. JOB# [id number]
[2017-12-10] MEDS: Pantoprazole 40 mg EC Tab PO SCH (09:16)
[2017-12-10] MEDS: Fish Oil 1,000 MG SGL PO SCH (09:16)
[2017-12-10] MEDS: Multivitamin Tab PO SCH (09:16)
[2017-12-10] MEDS: Docusate Sodium/Senna Tab PO SCH (09:16)
--- NOTE | 2017-12-10 13:16 | Progress Notes ---
DATE: 12/10/2017 INTERNAL MEDICINE CONSULTATION FOLLOW UP SUBJECTIVE: The patient is a 72-year-old female. Current medical problems include hypertension, history of chronic kidney disease, COPD, coronary artery disease, peptic ulcer disease, arthritis, and anemia. No new symptoms. OBJECTIVE: VITAL SIGNS: Stable. LUNGS: Clear. HEART EXAM: First and second heart sound are normal. No murmur, no gallop. S1, S2 present. ABDOMEN: Soft, bowel sounds present and good. EXTREMITIES: Show arthritis. NEUROLOGIC: History of dementia. Continue current medical management. Psych consult reviewed. JOB# [id number]
--- NOTE | 2017-12-11 00:44 | Progress Notes ---
DATE: 12/10/2017 SUBJECTIVE: Staff was spoken to. The patient is interviewed. Mood is noted to be irritable. Affect is constricted. The patient is stating that she has been having difficult time to swallow pills in the morning, but the patient has been able to eat her breakfast well. No side effects to the medications are noted. The patient has been presenting with this kind of problem in the morning. The patient at this time is on Seroquel, which is being given at 25 mg b.i.d. No side effects to the medications are noted. The patient continues to be paranoid and hence it is decided to increase the dose on the Seroquel to 50 mg b.i.d. and follow the patient up. The case assistant is going to be requested to ____ replacement of the patient, if the previous facility is not willing to accept the patient. JOB# [id number]
[2017-12-11] MEDS: Fish Oil 1,000 MG SGL PO SCH (09:44)
[2017-12-11] MEDS: Pantoprazole 40 mg EC Tab PO SCH (09:44)
[2017-12-11] MEDS: Docusate Sodium/Senna Tab PO SCH (09:44)
[2017-12-11] MEDS: Multivitamin Tab PO SCH (09:44)
[2017-12-11] MEDS ORDERED: Haloperidol Lactate 5 mg/mL 1mL Vial ONE (10:28)
[2017-12-11] MEDS: Haloperidol Lactate 5 mg/mL 1mL Vial IM PRN (10:41)
[2017-12-11] MEDS ORDERED: Haloperidol Lactate 5 mg/mL 1mL Vial IM ONE (16:36)
--- NOTE | 2017-12-11 19:56 | Progress Notes ---
DATE: 12/11/2017 PSYCHIATRIC PROGRESS NOTE Staff was spoken to. The patient is interviewed. Mood is noted to be irritable. Affect is constricted. She continues to be very paranoid. The patient is stating that she cannot swallow the pills because she is afraid they are going to get stuck, she wants any injection form, and hence it is decided to go with Haldol 2 mg twice a day and possibly give Haldol decanoate prior to the patient being discharged. JOB# [id number]
[2017-12-12] MEDS: Pantoprazole 40 mg EC Tab PO SCH (09:42)
[2017-12-12] MEDS: Docusate Sodium/Senna Tab PO SCH (09:42)
[2017-12-12] MEDS: Fish Oil 1,000 MG SGL PO SCH (09:42)
[2017-12-12] MEDS: Multivitamin Tab PO SCH (09:42)
[2017-12-12] MEDS: Haloperidol Lactate 5 mg/mL 1mL Vial IM PRN ×2 (10:00→17:50)
--- NOTE | 2017-12-12 14:53 | Progress Notes ---
DATE: 12/12/2017 PSYCHIATRIC PROGRESS NOTE SUBJECTIVE: Staff was spoken to. The patient is interviewed. Mood is noted to be irritable. Affect is constricted. The patient has been isolative and withdrawn. The patient is stating that the pills are going to be hurting her throat and even when the medication is being given as a liquid. The patient is stating that it is burning in her throat and she does not take the liquid. She wants the medications by injection route. ASSESSMENT: The patient is still grossly psychotic and paranoid. PLAN: To continue the patient with the supportive therapy and followup. JOB# [id number]
--- NOTE | 2017-12-12 18:05 | Progress Notes ---
DATE: 12/12/2017 SUBJECTIVE: The patient is a 72-year-old female with past medical history significant for hypertension, chronic kidney disease, COPD, coronary artery disease, peptic ulcer disease, arthritis, and anemia. CHIEF COMPLAINT: No new symptoms. PHYSICAL EXAMINATION: VITAL SIGNS: Stable. LUNGS: Clear. HEART: First and second heart sounds normal. No gallops ___ present. ABDOMEN: Soft. Bowel sounds are good. EXTREMITIES: Show arthritis. NEUROLOGIC: The patient has no focal motor deficit. TREATMENT PLAN: Continue current medical management. Psych consult reviewed. JOB# [id number]
[2017-12-13] MEDS: Fish Oil 1,000 MG SGL PO SCH (12:16)
[2017-12-13] MEDS: Docusate Sodium/Senna Tab PO SCH (12:16)
[2017-12-13] MEDS: Multivitamin Tab PO SCH (12:17)
[2017-12-13] MEDS: Pantoprazole 40 mg EC Tab PO SCH (12:17)
[2017-12-14] MEDS: Fish Oil 1,000 MG SGL PO SCH (09:10)
[2017-12-14] MEDS: Multivitamin Tab PO SCH (09:10)
[2017-12-14] MEDS: Pantoprazole 40 mg EC Tab PO SCH (09:11)
[2017-12-14] MEDS: Docusate Sodium/Senna Tab PO SCH (09:11)
--- NOTE | 2017-12-14 09:28 | Progress Notes ---
DATE: 12/13/2017 PSYCHIATRIC PROGRESS NOTE SUBJECTIVE: Staff was spoken to. The patient is interviewed. Mood is noted to be irritable. Affect is constricted. The patient's insight and judgment are noted to be impaired. Impulse control is noted to be poor. PLAN: The patient is mentioning that she does not want to be taking any medications by mouth and she would rather get the medications by injection, and hence it is decided to go with Haldol Decanoate 50 mg IV for her psychosis and follow the patient with supportive therapy. JOB# [id number]
--- NOTE | 2017-12-14 18:59 | Progress Notes ---
DATE: 12/14/2017 SUBJECTIVE: Staff was spoken to. The patient is interviewed. Mood is noted to be irritable. Affect is constricted. The patient's insight and judgment are noted to be still impaired. The patient is refusing to comply with the oral medications. The patient states that she prefers the intramuscular medication. In view of the patient's noncompliance, it is decided to start the patient on 50 mg of the Haldol Decanoate. ASSESSMENT: The patient is still psychotic and impulsive. PLAN: To continue the patient with the supportive therapy and followup. JOB# [id number]
--- NOTE | 2017-12-14 22:21 | Consultation ---
DATE OF CONSULTATION: 12/14/2017 INPATIENT CONSULTATION A 72-year-old female with past history of hypertension, chronic kidney disease, COPD, coronary artery disease, peptic ulcer disease, gastritis, arthritis, and anemia. No new symptoms. OBJECTIVE: VITAL SIGNS: Stable. LUNGS: Clear. HEART: First and second heart sounds normal. No gallop. Systolic present. ABDOMEN: Soft. Bowel sounds are good. EXTREMITIES: Show arthritis. NEUROLOGICAL: The patient has dementia. MEDICAL DIAGNOSES: Remain the same. PLAN: Continue current medical management. Psych consult reviewed. Follow up. JOB# [id number]
[2017-12-15] MEDS: Multivitamin Tab PO SCH (11:05)
[2017-12-15] MEDS: Fish Oil 1,000 MG SGL PO SCH (11:05)
[2017-12-15] MEDS: Docusate Sodium/Senna Tab PO SCH (11:05)
[2017-12-15] MEDS: Pantoprazole 40 mg EC Tab PO SCH (11:06)
--- NOTE | 2017-12-15 14:46 | Progress Notes ---
DATE: 12/15/2017 SUBJECTIVE: Staff was spoken to. The patient is interviewed. Mood is noted to be less irritable. Affect is appropriate. The patient is isolative and withdrawn. Coping skills at this time are noted to be poor. Insight and judgment also noted to be poor. The patient has been still refusing to comply with the oral medication and the patient has been given the Haldol. I am going to be gradually decreasing the dose of the Seroquel that has been given. She was ordered ____ mg twice a day. I am going to be bringing it down to 50 mg once at nighttime if the patient is willing to comply. Otherwise, the patient is going to be taken off the medications gradually. JOB# [id number]
--- NOTE | 2017-12-15 17:59 | Progress Notes ---
DATE: 12/15/2017 INTERNAL MEDICINE CONSULTATION The patient is a 72-year-old female with past medical history for hypertension, chronic kidney disease, COPD, coronary artery disease, peptic ulcer disease, gastritis, arthritis, and anemia. PHYSICAL EXAMINATION: VITAL SIGNS: Stable. LUNGS: Clear. HEART: First and second heart sounds normal. No gallop, systolic present. ABDOMEN: Soft, minimal epigastric tenderness. Bowel sounds are good. EXTREMITIES: Show arthritis. NEUROLOGIC: The patient has dementia. MEDICAL DIAGNOSES: Remain the same. PLAN: Continue current medical management. Psych consult reviewed. JOB# [id number]
[2017-12-16] MEDS: Pantoprazole 40 mg EC Tab PO SCH (10:13)
[2017-12-16] MEDS: Fish Oil 1,000 MG SGL PO SCH (10:15)
[2017-12-16] MEDS: Multivitamin Tab PO SCH (10:15)
[2017-12-16] MEDS: Docusate Sodium/Senna Tab PO SCH (10:15)
--- NOTE | 2017-12-16 14:02 | Progress Notes ---
DATE: 12/16/2017 SUBJECTIVE: Staff was spoken to. The patient is interviewed. Mood is noted to be irritable. Affect is constricted. Insight and judgment at this time are noted to be still impaired. Impulse control is limited. The patient has been on the Haldol and has been given the Haldol ____ and has been able to tolerate. No side effects to medications are noted. business process manager has been working for possible discharge of this patient. ASSESSMENT: The patient's psychosis is resolving. PLAN: To continue the patient with the supportive therapy and followup. JOB# [id number]
[2017-12-17] MEDS: Docusate Sodium/Senna Tab PO SCH (09:53)
[2017-12-17] MEDS: Pantoprazole 40 mg EC Tab PO SCH (09:53)
[2017-12-17] MEDS: Multivitamin Tab PO SCH (09:54)
[2017-12-17] MEDS: Fish Oil 1,000 MG SGL PO SCH (09:54)
--- NOTE | 2017-12-17 23:26 | Progress Notes ---
DATE: 12/17/2017 INTERNAL MEDICINE CONSULTATION FOLLOW UP SUBJECTIVE: The patient is a 72-year-old female with past medical history significant for hypertension, chronic kidney disease, COPD, coronary artery disease, peptic ulcer disease, gastritis, arthritis, osteoporosis. CHIEF COMPLAINT: No new symptoms. OBJECTIVE: VITAL SIGNS: Stable. LUNGS: Clear. HEART: First and second heart sounds normal. No gallop. S1, S2 present. ABDOMEN: Soft. Bowel sounds present and good. EXTREMITIES: Show arthritis. NEUROLOGIC: The patient has dementia. MEDICAL DIAGNOSES: Remain the same. Continue current medical management and psych consult reviewed. JOB# [id number]
--- NOTE | 2017-12-18 01:32 | Progress Notes ---
DATE: 12/17/2017 SUBJECTIVE: Staff was spoken to. The patient is interviewed. Mood is noted to be anxious. Affect is appropriate. The patient is not suicidal or homicidal. Insight and judgment are noted to be improving. Impulse control is noted to be fair. The patient has been given Haldol Decanoate today. ASSESSMENT: The patient is stabilizing. PLAN: To discharge the patient today for followup on an outpatient basis. JOB# [id number]
[2017-12-18] MEDS: Fish Oil 1,000 MG SGL PO SCH (08:48)
[2017-12-18] MEDS: Multivitamin Tab PO SCH (08:48)
[2017-12-18] MEDS: Docusate Sodium/Senna Tab PO SCH (08:48)
[2017-12-18] MEDS: Pantoprazole 40 mg EC Tab PO SCH (08:48)
--- NOTE | 2017-12-18 16:54 | Progress Notes ---
DATE: 12/18/2017 INTERNAL MEDICINE CONSULTATION AND FOLLOWUP The patient is a 72-year-old female. Current diagnoses include hypertension, chronic kidney disease, COPD, coronary artery disease, peptic ulcer disease, gastritis, arthritis, and anemia. PHYSICAL EXAMINATION: VITAL SIGNS: Stable. LUNGS: Clear. HEART: First and second heart sounds are normal. No gallop. Systolic present. ABDOMEN: Soft, bowel sounds present and good. EXTREMITIES: Show arthritis. NEUROLOGIC: The patient has dementia. MEDICAL DIAGNOSES: Hypertension, chronic kidney disease, chronic obstructive pulmonary disease, coronary artery disease, peptic ulcer disease, gastritis, arthritis, and anemia. PLAN: Continue current medical management. Psych consult reviewed. JOB# [id number]
--- NOTE | 2017-12-18 23:40 | Progress Notes ---
DATE: 12/18/2017 PSYCHIATRIC PROGRESS NOTE SUBJECTIVE: Staff was spoken to. The patient is interviewed. Mood is noted to be irritable. Affect is constricted. Coping skills are noted to be poor. The patient has been denying any current hallucinations, paranoia is noted. The patient's manager rn case have been trying to look for placement for this patient so far. They are not able to find placement for this patient. ASSESSMENT: The patient is stabilizing. PLAN: To continue the patient with the supportive therapy and followup. JOB# [id number]
[2017-12-19] MEDS: Pantoprazole 40 mg EC Tab PO SCH (08:57)
[2017-12-19] MEDS: Fish Oil 1,000 MG SGL PO SCH (08:57)
[2017-12-19] MEDS: Multivitamin Tab PO SCH (08:57)
[2017-12-19] MEDS: Docusate Sodium/Senna Tab PO SCH (08:57)
--- NOTE | 2017-12-19 20:26 | Progress Notes ---
DATE: 12/19/2017 SUBJECTIVE: Staff was spoken to. The patient is interviewed. Mood is noted to be less irritable. The patient has paranoid delusions, but denies any command hallucinations. The patient's psychosis is resolving. No aggressive behaviors are noted. The patient has been given the Haldol Decanoate because of her noncompliance. ASSESSMENT: The patient is stabilizing and awaiting placement. PLAN: To continue the patient with the supportive therapy, encouraged the patient to verbalize the concerns rather than to act out. JOB# [id number]
--- NOTE | 2017-12-19 22:27 | Progress Notes ---
DATE: 12/19/2017 INTERNAL MEDICINE CONSULTATION FOLLOW UP SUBJECTIVE: The patient is a 72-year-old lady, current medical problems include hypertension, history of chronic kidney disease, COPD, coronary artery disease, peptic ulcer disease, arthritis, and anemia. OBJECTIVE: VITAL SIGNS: Stable. LUNGS: Clear. HEART: First and second heart sounds are normal. No gallop. Systolic present. ABDOMEN: Soft, minimal epigastric tenderness. Bowel sounds are good. EXTREMITIES: Show arthritis. NEUROLOGIC: The patient has dementia. MEDICAL DIAGNOSES: Remain the same. PLAN: Continue current medical management. Psych consult reviewed. JOB# [id number]
[2017-12-20] MEDS: Fish Oil 1,000 MG SGL PO SCH (08:31)
[2017-12-20] MEDS: Docusate Sodium/Senna Tab PO SCH (08:31)
[2017-12-20] MEDS: Pantoprazole 40 mg EC Tab PO SCH (08:32)
[2017-12-20] MEDS: Multivitamin Tab PO SCH (08:32)
--- NOTE | 2017-12-21 03:08 | Progress Notes ---
DATE: 12/20/2017 SUBJECTIVE: Staff was spoken to. The patient is interviewed. Mood is noted to be less irritable. Affect is appropriate. Not suicidal or homicidal. Insight and judgment are noted to be improving. Impulse control is noted to be improving. The patient, however, has paranoia and delusions. The patient's coping skills are noted to be still poor. It is reported that the patient has to be getting the authorization from the superior court with regards to the placement of the patient. ASSESSMENT: The patient is still paranoid and awaiting placement. PLAN: To continue the patient with the current medications and followup. JOB# [id number]
--- NOTE | 2017-12-21 06:39 | Progress Notes ---
DATE: 12/20/2017 INTERNAL MEDICINE CONSULTATION AND FOLLOWUP SUBJECTIVE: A 72-year-old [facility]. PAST MEDICAL HISTORY: Significant for hypertension, chronic kidney disease, COPD, coronary artery disease, peptic ulcer disease, arthritis, and anemia. PHYSICAL EXAMINATION: VITAL SIGNS: Stable. LUNGS: Clear. HEART: First and second heart sounds are normal. No gallop. Systolic present. ABDOMEN: Soft. Bowel sounds present and good. EXTREMITIES: Show arthritis. NEUROLOGICAL: Dementia. MEDICAL DIAGNOSES: Hypertension, chronic kidney disease, chronic obstructive pulmonary disease, coronary artery disease, peptic ulcer disease, arthritis, and anemia. PLAN: Continue current medical management and psych consult reviewed. JOB# [id number]
[2017-12-21] MEDS: Multivitamin Tab PO SCH ×2 (08:09→08:21)
[2017-12-21] MEDS: Pantoprazole 40 mg EC Tab PO SCH ×2 (08:09→08:21)
[2017-12-21] MEDS: Docusate Sodium/Senna Tab PO SCH ×2 (08:10→08:21)
[2017-12-21] MEDS: Fish Oil 1,000 MG SGL PO SCH ×2 (08:10→08:21)
--- NOTE | 2017-12-21 10:05 | Progress Notes ---
DATE: 12/21/2017 SUBJECTIVE: Staff was spoken to. The patient is interviewed. Mood is noted to be irritable. Affect is constricted. Insight and judgment at this time are noted to be still impaired. Impulse control seemed to be poor. Coping skills are noted to be very poor. The patient has been insisting that she should not be taking any medication by mouth and she wants everything to be given in the form of injection. The patient has been given the Haldol Decanoate on 12/17/2017. The patient at this time is still irritable, angry and has been having difficult time. The patient has mild tremor in the upper extremity. ASSESSMENT: The patient is still grossly psychotic. PLAN: To continue the patient with the supportive therapy, encouraged the patient to verbalize the concerns rather than to act out. The patient at this time is not able to verbalize the concerns and the patient. Insight and judgment at this time are noted to be extremely impaired. Plan to continue the patient with the supportive therapy and follow. [facility]# [id number]
[2017-12-22] MEDS: Docusate Sodium/Senna Tab PO SCH (09:00)
[2017-12-22] MEDS: Multivitamin Tab PO SCH (09:00)
[2017-12-22] MEDS: Pantoprazole 40 mg EC Tab PO SCH (09:00)
[2017-12-22] MEDS: Fish Oil 1,000 MG SGL PO SCH (09:00)
--- NOTE | 2017-12-22 19:08 | Progress Notes ---
DATE: 12/22/2017 INTERNAL MEDICINE CONSULTATION The patient is a 72-year-old [facility] PAST MEDICAL HISTORY: Significant for hypertension, chronic kidney disease, COPD, coronary artery disease, peptic ulcer disease, gastritis, arthritis, anemia. CHIEF COMPLAINT: No new. OBJECTIVE: VITAL SIGNS: Stable. LUNGS: Clear. HEART: First and second heart sounds are normal. Systolic present. ABDOMEN: Soft, bowel sounds are present and good. EXTREMITIES: Show arthritis. NEUROLOGIC: The patient has dementia. MEDICAL DIAGNOSES: Hypertension, chronic kidney disease, chronic obstructive pulmonary disease, coronary artery disease, peptic ulcer disease, gastritis, arthritis, anemia. Continue current medical management. Psych consult reviewed. JOB# [id number]
--- NOTE | 2017-12-22 19:13 | Progress Notes ---
DATE: 12/22/2017 SUBJECTIVE: Staff was spoken to. The patient is interviewed. Mood is noted to be anxious. Coping skills at this time are noted to be very poor. The patient has been having difficult time to cope with the stress, continues to be very paranoid and is reluctant to take the medication. The patient has tremor in the upper extremities. The patient has been informed to take the medication by mouth, but she is refusing. We have to resort to giving medications IM. The patient has no place to return to. ASSESSMENT: The patient is still grossly psychotic and gravely disabled. PLAN: To continue the patient with the supportive therapy and followup. JOB# [id number]
[2017-12-23] MEDS: Pantoprazole 40 mg EC Tab PO SCH (08:38)
[2017-12-23] MEDS: Fish Oil 1,000 MG SGL PO SCH (08:38)
[2017-12-23] MEDS: Docusate Sodium/Senna Tab PO SCH (08:38)
[2017-12-23] MEDS: Multivitamin Tab PO SCH (08:38)
--- NOTE | 2017-12-23 12:03 | Progress Notes ---
DATE: 12/23/2017 DENTAL MEDICINE CONSULTATION FOLLOWUP SUBJECTIVE: The patient is a 72-year-old female with past medicine for hypertension, chronic kidney disease, COPD, coronary artery disease, peptic ulcer disease, arthritis, and anemia. New symptoms none. OBJECTIVE: VITAL SIGNS: Stable. LUNGS: Showed bilateral rhonchi as well as crepitation. No bronchial breathing. HEART: First and second heart sounds normal. No gallop. Systolic present. ABDOMEN: Soft. Bowel sounds are present good. EXTREMITIES: Show arthritis. NEUROLOGIC: The patient has dementia. ASSESSMENT: Continue current medical management. Psych consult reviewed. JOB# [id number]
--- NOTE | 2017-12-24 02:18 | Progress Notes ---
DATE: 12/23/2017 SUBJECTIVE: Staff was spoken to. The patient is interviewed. Mood is noted to be irritable. Affect is constricted. Insight and judgment are noted to be ____. Impulse control is noted to be limited. The patient is getting easily frustrated. The patient has no insight into her illness. The patient has been given the Haldol because the patient has been refusing to comply with the oral medication, but I am going to be trying the patient with a low dose of the Depakote to see if it has been going to be of some help and when it comes to the mood swings, the patient at this time is reluctant to comply with the medication. The patient has no insight into her illness. ASSESSMENT: The patient is still psychotic and having difficult time to comply with the medication. PLAN: To continue the patient with the supportive therapy and add the Depakote to deal with the mood swings and follow the patient up. JOB# [id number]
[2017-12-24] MEDS: Fish Oil 1,000 MG SGL PO SCH (08:23)
[2017-12-24] MEDS: Docusate Sodium/Senna Tab PO SCH (08:23)
[2017-12-24] MEDS: Pantoprazole 40 mg EC Tab PO SCH (08:24)
[2017-12-24] MEDS: Multivitamin Tab PO SCH (08:24)
--- NOTE | 2017-12-24 20:21 | Progress Notes ---
DATE: 12/24/2017 INTERNAL MEDICINE CONSULTATION FOLLOWUP SUBJECTIVE: The patient's current medical problems include hypertension, chronic kidney disease, COPD, peptic ulcer disease, arthritis, anemia. No new symptoms. OBJECTIVE: VITAL SIGNS: Stable. LUNGS: Clear. HEART: First and second heart sounds are normal. No gallop. S1, S2 present. ABDOMEN: Soft, bowel sounds present. EXTREMITIES: Show arthritis. NEUROLOGIC: No focal motor deficit. PLAN: Continue current medical management. Psych consult reviewed. JOB# [id number]
--- NOTE | 2017-12-25 00:35 | Progress Notes ---
DATE: 12/24/2017 Staff was spoken to. The patient is interviewed. Mood is noted to be irritable. Affect is constricted. The patient is refusing to comply with the medication. The patient has refused to take the lunch. The patient's coping skills at this time are noted to be poor. Insight and judgment also noted to be impaired. The patient has been given the dose of Haldol Decanoate. The patient is awaiting placement and we are awaiting for a call from the conservator, so far no call has been received and hence the patient is still awaiting transfer to the senior living facility. JOB# [id number]
[2017-12-25] MEDS: Docusate Sodium/Senna Tab PO SCH (08:50)
[2017-12-25] MEDS: Multivitamin Tab PO SCH (08:50)
[2017-12-25] MEDS: Fish Oil 1,000 MG SGL PO SCH (08:50)
[2017-12-25] MEDS: Pantoprazole 40 mg EC Tab PO SCH (08:51)
--- NOTE | 2017-12-25 09:48 | Progress Notes ---
DATE: 12/25/2017 INTERNAL MEDICINE CONSULTATION FOLLOWUP The patient is a 72-[facility] CURRENT MEDICAL PROBLEMS: Include history of hypertension, chronic kidney disease, COPD, coronary artery disease, peptic ulcer disease, arthritis, osteoporosis and anemia. CHIEF COMPLAINT: No new symptoms. OBJECTIVE: VITAL SIGNS: Stable. LUNGS: Clear. HEART: First and second heart sounds normal. No gallop. S1, S2 present. ABDOMEN: Soft, minimal epigastric tenderness. Bowel sounds present and good. EXTREMITIES: Show arthritis. NEUROLOGIC: The patient has dementia. TREATMENT PLAN: Continue current medical management. Psych consult reviewed. JOB# [id number]
--- NOTE | 2017-12-26 01:54 | Progress Notes ---
DATE: 12/25/2017 SUBJECTIVE: Staff was spoken to. The patient is interviewed. Mood is noted to be irritable. Affect is constricted. Insight and judgment at this time are noted to be still impaired. Impulse control is noted to be limited. The patient is screaming and yelling, stating that she does not want to talk to anyone and who has been reluctant to comply with the treatment. The patient has no insight into her illness. The patient is awaiting for placement at this time. No side effects to the medications are noted. ASSESSMENT: The patient is still psychotic. PLAN: To continue the patient with the supportive therapy, I encouraged the patient to verbalize the concerns rather than to act out. JOB# [id number]
[2017-12-26] MEDS: Fish Oil 1,000 MG SGL PO SCH (09:47)
[2017-12-26] MEDS: Pantoprazole 40 mg EC Tab PO SCH (09:47)
[2017-12-26] MEDS: Docusate Sodium/Senna Tab PO SCH (09:47)
[2017-12-26] MEDS: Multivitamin Tab PO SCH (09:47)
--- NOTE | 2017-12-26 18:08 | Progress Notes ---
DATE: INTERNAL MEDICINE CONSULTATION FOLLOWUP SUBJECTIVE: The patient is a 72-year-old female [facility]. CURRENT MEDICAL PROBLEMS: Include hypertension, history of chronic kidney disease, COPD, coronary artery disease, peptic ulcer disease, arthritis, and anemia. OBJECTIVE: VITAL SIGNS: Stable. LUNGS: Clear. HEART: First and second heart sound are normal. No gallops. S1, S2 present. ABDOMEN: Soft. Bowel sounds are present and good. EXTREMITIES: Show arthritis. NEUROLOGIC: The patient has dementia. MEDICAL DIAGNOSES: Remain the same. PLAN: Continue current medical management. Continue psych treatment. JOB# [id number]
--- NOTE | 2017-12-27 00:34 | Progress Notes ---
DATE: 12/26/2017 PSYCHIATRIC PROGRESS NOTE SUBJECTIVE: Staff was spoken to. The patient is interviewed. Mood is noted to be less irritable. Affect is appropriate. The patient's insight and judgment are noted to be improving. Impulse control seems to be fair. Coping skills are noted to be improving. No side effects to the medications are noted. ASSESSMENT: The patient is stabilizing. PLAN: To discharge the patient today for followup on an outpatient basis. manager cardiology has been able to secure a placement for this patient. JOB# [id number]
== END 2017-12-26 13:35 | DRG 885 ==
LOC: ER 21:56 → GERO2 23:10 → GERO 12-04 22:53
PROVIDERS: ADMIT Psychiatry & Neurology Psychiatry; ATTEND Psychiatry & Neurology Psychiatry
DX: F29 Unspecified psychosis not due to a substance or known physiological condition (principal); F03.91 Unspecified dementia, unspecified severity, with behavioral disturbance; E87.1 Hypo-osmolality and hyponatremia; N18.9 Chronic kidney disease, unspecified; I25.10 Atherosclerotic heart disease of native coronary artery without angina pectoris; M19.90 Unspecified osteoarthritis, unspecified site; M81.0 Age-related osteoporosis without current pathological fracture; F41.9 Anxiety disorder, unspecified; I12.9 Hypertensive chronic kidney disease with stage 1 through stage 4 chronic kidney disease, or unspecified chronic kidney disease; K27.9 Peptic ulcer, site unspecified, unspecified as acute or chronic, without hemorrhage or perforation; K29.70 Gastritis, unspecified, without bleeding; J44.9 Chronic obstructive pulmonary disease, unspecified; D64.9 Anemia, unspecified; E78.5 Hyperlipidemia, unspecified; E86.0 Dehydration; Z88.8 Allergy status to other drugs, medicaments and biological substances; Z87.11 Personal history of peptic ulcer disease
CPT/HCPCS: 36415-UA; 80053-TC; 80061-TC; 84443-TC; 85007-TC; 85025-TC; 85610-TC; 85652-TC; 93005; G0410; J1630; J1631; Z7610

== ENCOUNTER 2018-04-14 18:13 | Inpatient (IN) | payer MEDICARE, MEDICAID ==
--- NOTE | 2018-04-14 19:10 | ED Physician Chart ---
ED Chief Complaint/HPI - Patient Information Date Seen:: 04/14/18 Time Seen:: 19:05 Chief Complaint:: wire in lt thumb History of Present Illness:: 73 yr old female with hx of active schizophrenia who is not feeling stable she is hallucinating and seeing things all the time Allergies:: Allergies Allergy/AdvReac Type Severity Reaction Status Date / Time acyclovir Allergy Verified 04/14/18 18:48 Vitals:: Vital Signs - 8 hr 04/14/18 18:56 Temp 98.2 F HR 90 RR 18 BP 142/84 O2 Sat % 98 ED Review of Systems - Review of Systems General/Constitutional: No fever Skin: No skin lesions Head: No headache Eyes: No loss of vision ENT: No earache Neck: No neck pain Cardio Vascular: No chest pain Pulmonary: No SOB GI: No nausea G/U: No dysuria Helminthology Teacher: No vaginal discharge Musculoskeletal: No bone or joint pain Endocrine: No polyuria Psychiatric: Prior psych history, Depression, Anxiety, Auditory hallucination, Visual hallucination Hematopoietic: No bruising Allergic/Immuno: No urticaria Neurological: No syncope Family Medical History - Family Member Mother History Unknown: Yes Ethnicity: Non- Living Status: Unknown Hx Family Cancer: (unknown) Hx Family Coronary Artery Disease: (unknown) Hx Family Congestive Heart Failure: (unknown) Hx Family Hypertension: (unknown) Hx Family Stroke: (unknown) Hx Family Diabetes: (unknown) Hx Family Seizures: (unknown) Hx Family Dementia: (unknown) Hx Family AIDS: (unknown) Hx Family COPD: (unknown) Hx Family Hepatitis: (unknown) Hx Family Psychiatric Problems: (unknown) Hx Family Tuberculosis: (unknown) ED Septic Shock - . Is Septic Shock (SBP<90, OR Lactate>4 mmol\L) present?: No - <6hrs of presentation: Vital Signs: Vital Signs - 8 hr 04/14/18 18:56 Temp 98.2 F HR 90 RR 18 BP 142/84 O2 Sat % 98 ED Reassessment (Disposition) - Reassessment Reassessment:: unchanged active psychosis - Patient Disposition Discharge/Transfer:: Acute Care w/in this hosp
[2018-04-14 20:40] LABS: % BASOPHILS 0.3 % (0.0-2.0); % EOSINOPHILS 2.5 % (0.0-5.0); % LYMPHOCYTES 25.7 % (20.0-50.0); % MONOCYTES 8.1 % (2.0-10.0); % NEUTROPHILS 63.4 % (40.0-80.0); EOSINOPHILE ABSOLUTE 0.2 Th/cmm (0.1-0.4); HEMATOCRIT 41.5 % (41.0-60); HEMOGLOBIN 13.6 gm/dL (12-16); LYMPHOCYTE ABSOLUTE 2.1 Th/cmm (1.5-3.0); MEAN CELL VOLUME 86.3 fl (81-100); MEAN CORPUSCULAR HEMOGLOBIN 28.2 pg (27.0-31.0); MEAN CORPUSCULAR HGB CONC 32.7 pg (28.0-36.0); MONOCYTE ABSOLUTE 0.6 Th/cmm (0.3-1.0); NEUTROPHILE ABSOLUTE 5.1 Th/cmm (1.8-8.0); PLATELET COUNT 213 Th/cmm (150-400); RED BLOOD COUNT 4.81 Mil/cmm (3.80-5.20); RED CELL DISTRIBUTION WIDTH 14.3 % (11.5-20.0)
[2018-04-14 20:46] LABS: URINE SOURCE CLEAN C
[2018-04-14 20:49] LABS: URINE BILIRUBIN NEGATIVE (NEGATIVE); URINE BLOOD NEGATIVE (NEGATIVE); URINE GLUCOSE (UA) NEGATIVE (NEGATIVE); URINE KETONE NEGATIVE (NEGATIVE); URINE LEUKOCYTE ESTERASE LARGE (NEGATIVE); URINE MICROSCOPIC INDICATED? YES; URINE NITRATE POSITIVE (NEGATIVE); URINE PROTEIN NEGATIVE (NEGATIVE); URINE UROBILINOGEN 0.2 E.U./dL (0.2 - 1.0)
[2018-04-14 20:50] LABS: URINE CLARITY CLOUDY (CLEAR); URINE COLOR YELLOW
[2018-04-14 20:54] LABS: URINE BACTERIA 4+ /hpf (NONE SEEN); URINE EPITHELIAL CELLS FEW /lpf (FEW); URINE WBC 50-100 /hpf (0-5)
[2018-04-14 20:58] LABS: ALB/GLOB RATIO 1.4 (1.0-1.8); ALKALINE PHOSPHATASE 49 U/L (34-104); ANION GAP 13.6 (7.0-16.0); BILIRUBIN,TOTAL 0.3 mg/dL (0.3-1.0); BUN - UREA NITROGEN 22 mg/dL (7-25); CALCIUM SERUM 9.6 mg/dL (8.6-10.3); CARBON DIOXIDE 24.4 mEq/L (21.0-31.0); CHLORIDE 103 mEq/L (98-107); GLUCOSE 99 mg/dL (70-105); PHOSPHOROUS 3.3 mg/dL (2.5-5.0); SGOT 12 U/L (13-39); SGPT/ALT 9 U/L (7-52); SODIUM SERUM 137 mEq/L (136-145); TOTAL PROTEIN,SERUM 6.9 gm/dL (6.0-8.3); VALPROIC ACID 15.7 ug/mL (50.0-100.0)
[2018-04-14 23:16] VITALS: BP 141/74
[2018-04-14] MEDS ORDERED: Maalox 30 mL Cup PO PRN (23:40)
[2018-04-14] MEDS ORDERED: Magnesium Hydroxide (MOM) 30 mL UDC PO PRN (23:46)
[2018-04-15 02:17] LABS: CHOLESTEROL 185 mg/dL (<200); HDL -HIGH DENSITY LIPOPROTEIN 56 mg/dL (23-92); TRIGLYCERIDES 195 mg/dL (<150)
[2018-04-15] MEDS: Pantoprazole 40 mg EC Tab PO SCH (06:38)
[2018-04-15] MEDS: Multivitamin w/ Minerals Tab PO SCH (08:48)
[2018-04-15] MEDS: Fish Oil 1,000 MG SGL PO SCH (08:48)
[2018-04-15] MEDS: Calcium Carb/Vit D 500 mg/200 U Tab PO SCH (08:48)
--- NOTE | 2018-04-15 08:57 | Diagnostic Imaging Report ---
CHEST X-RAY: AP view INDICATION: Shortness of breath COMPARISON: None FINDINGS: There is abnormal density seen along the right lower hemithorax measuring 3.6 x 1.6 cm. No focal consolidation or effusions. Heart size is normal. Atherosclerosis is noted. Degenerative changes of the spine are noted. IMPRESSION: Abnormal soft tissue density projecting along the right hemithorax. Findings may be due to diaphragmatic herniation however, other mass lesions cannot be excluded. Correlation with clinical history exams is recommended. If no prior exams are available for, CT examination is recommended for further assessment. Atherosclerotic vascular disease.
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
--- NOTE | 2018-04-15 19:36 | History & Physical ---
ADMIT DATE: PATIENT'S IDENTIFICATION: This is a 73-year-old female. REQUESTING PHYSICIAN: Dr. Santiago and Dr. Bose. HISTORY OF PRESENT ILLNESS: A 73-year-old female, who resides in [place], brought in to the Emergency Room at [facility] for agitation and aggressive behavior. It was noted that she is responding to her internal stimuli. She is a poor historian. The patient does not provide any meaningful history. PAST MEDICAL HISTORY: Remarkable for: 1. Alzheimer's type dementia. 2. DJD. 3. Gastroesophageal reflux disease. 4. Psychotic disorder. 5. Osteoporosis. 6. Coronary artery disease. MEDICATIONS AT HOME: The patient is taking multiple meds, which include Depakote, Colace, fish oil, lorazepam, milk of magnesia, naproxen sodium, Zyprexa, Protonix, and Ambien. ALLERGIES: THE PATIENT IS ALLERGIC TO ACYCLOVIR. SOCIAL HISTORY: The patient resides in a retirement. The patient has no history of smoking cigarette or drinking alcohol or using street drug use. FAMILY MEDICAL HISTORY: Unavailable. REVIEW OF SYSTEMS: Unable to get meaningful history from the patient due to the patient's underlying psychotic illness. PHYSICAL EXAMINATION: GENERAL: The patient is alert, awake, follows commands: VITAL SIGNS: Temperature is 97.3, pulse is 102, respiratory rate is 18, and blood pressure is 113/65. HEENT: Normocephalic, atraumatic. Extraocular muscles are intact. Tongue were pink and coated. Poor dentition noted. No facial asymmetry noted. NECK: Supple, no JVD, no hepatojugular reflex. No lymphadenopathy, thyromegaly, or carotid bruit. HEART: Both heart sounds are regular. No S3, no S4, no murmur. CHEST AND LUNGS: Equal in expansion, no expiratory wheezing. ABDOMEN: Soft. No guarding, no rigidity. Liver, spleen palpable. No palpable mass. EXTREMITIES: No edema, no cyanosis. NEUROLOGIC: Alert, awake, follows commands. Decreased power throughout the upper and lower extremity noted. Unable to complete neurological examination due to patient's current condition. AVAILABLE DIAGNOSTIC DATA: White count of 8, hemoglobin 13.6, platelet count 213. BUN and creatinine is normal. Electrolytes are normal. AST, ALT are normal. Urine is cloudy with nitrite being positive, large leukocyte esterase, 50 to 100 wbc with +4 bacteria. Valproic acid is 15.7. Chest x-ray done in the Emergency Room, which is remarkable for abnormal soft-tissue density on the right hemithorax, possible diaphragmatic hernia with this mass cannot be ruled out. Atherosclerotic vascular disease was also noted. CLINICAL IMPRESSION: 1. Psychotic disorder. 2. Complicated urinary tract infection. 3. Abnormal chest x-ray. 4. Atherosclerotic heart disease. 5. Gastritis. 6. Gastroesophageal reflux disease 7. Degenerative joint disease. 8. Osteoporosis. 9. Dementia. PLAN: 1. The patient will be treated on p.o. antibiotic, Bactrim-DS for urinary tract infection. 2. Proceed with CT scan of the chest. 3. Continue appropriate home medicine reconciliation. 4. Psych medication and psych followup. 5. Fall precaution. 6. Nutritional support. 7. General nursing care. 8. Care plan reviewed and discussed with staff. JOB# [id number]
[2018-04-16] MEDS: Pantoprazole 40 mg EC Tab PO SCH (06:46)
[2018-04-16] MEDS: Sulfamethoxazole/TMP 800/160mg Tab PO SCH ×2 (08:03→16:35)
[2018-04-16] MEDS: Calcium Carb/Vit D 500 mg/200 U Tab PO SCH (08:03)
[2018-04-16] MEDS: Fish Oil 1,000 MG SGL PO SCH (08:03)
[2018-04-16] MEDS: Multivitamin w/ Minerals Tab PO SCH (08:03)
--- NOTE | 2018-04-16 08:55 | Diagnostic Imaging Report ---
CT Chest without IV contrast HISTORY: Shortness of breath COMPARISON: Chest x-ray 04/14/2018. Technique: Axial images were obtained from the base of the neck to the upper abdomen without administration of IV contrast. Coronal reconstructions were made. Total DLP 189, CTD I 5.8 Findings: Evaluation the mediastinum is limited due to lack of IV contrast. Heterogeneous partially visualized thyroid gland is noted. No mediastinal lymphadenopathy. Diffuse atherosclerosis is noted including coronary artery calcifications and what may be a coronary artery stent. Heart size is normal. There is a small pericardial effusion. There is significant fluid distention of the esophagus with small to moderate hiatal hernia. Evaluation of the lung mcduffie demonstrates chronic lung changes and mild COPD lung changes. There is also a pleural-based nodule along the right lung base measuring 9 mm. This is best seen on (image 71, series 3). Hypoventilatory and mild atelectatic changes are noted. Additional focal consolidative changes of the right middle lobe and lingula are also noted. There is also focal right posterior diaphragmatic herniation with herniation of fat superiorly accounting for density seen on recent chest x-ray. This measures 4.1 transverse x 3.2 cm craniocaudal. The upper abdomen demonstrates a distended fluid-filled stomach. Atherosclerosis is noted. There is a 2 cm cyst within the left lobe of the liver. Degenerative changes of the spine are noted. Bilateral breast implants are seen with capsular calcifications. There is irregular contour of the bilateral breast implants. IMPRESSION: COPD lung changes with minimal consolidative changes involving the lingula and right middle lobe. Findings may be due to passive atelectasis, however, infectious pneumonia cannot be excluded. 9 mm right lower lobe nodule along the pleura. Findings may be due to infectious, inflammatory or neoplastic process. Correlation with old exams would be helpful for comparison. Follow-up PET/CT is suggested for further assessment of this finding. Focal right posterior diaphragmatic fat herniation along the posterior right lung base. This accounts for large density seen on recent x-rays. Significant fluid distention of the esophagus. There is also a small to moderate-sized hiatal hernia. Clinical correlation of this finding is recommended. The patient may be at risk for aspiration. Diffuse atherosclerosis of the coronary artery calcifications. Small pericardial effusion. Distended stomach. Bilateral breast implants with capsular calcifications and irregular contours of the bilateral implants. Clinical correlation is needed.
--- NOTE | 2018-04-16 12:58 | Progress Notes ---
DATE: 04/16/2018 THE PATIENT'S ID: A 73-year-old female. SUBJECTIVE: The patient seen and examined. The patient underwent CT scan of the chest on 04/15/2018, which did reveal COPD, lung changes with consolidate changes involving the lingula and right middle lobe noted. There is also 9 mm right lower lobe nodules along the luly also noted. Significant fluid distention of the esophagus and there is also small moderate size hiatal hernia also noted as well. Diffuse atherosclerosis and small pericardial effusion, distended stomach noted as well. The patient also had blood cultures, which was unremarkable as well. PHYSICAL EXAMINATION: GENERAL: On today's exam, the patient is alert, awake, follows command. HEENT: No facial asymmetry. NECK: Supple, no JVD. HEART: Regular. CHEST AND LUNGS: Equal in expansion. Decreased breath sounds at right bases noted. ABDOMEN: Soft. No guarding, no rigidity. Bowel sounds are present. No palpable mass. EXTREMITIES: No edema. CLINICAL IMPRESSION: 1. Chronic obstructive pulmonary disease. 2. Right lower lobe pneumonia versus atelectasis. 3. Complicated urinary tract infection. 4. Atherosclerotic heart disease. 5. Gastritis. 6. Distended stomach. 7. Degenerative joint disease. 8. Osteoporosis. 9. Dementia. PLAN: 1. In the view of her etiology, change Bactrim to Levaquin. 2. The patient does have 8 mm nodules, which can be followed up as an outpatient. 3. The patient has been eating at this time. I will continue to monitor her for the aspiration. We will add Reglan 5 mg b.i.d. with lunch and dinner and see how she does. If there is no improvement, the patient will require GI evaluation. Continue to provide psych medication and proton pump inhibitor. Discontinue the naproxen sodium, which is scheduled as well. We will continue to follow this patient during the stay in the hospital. JOB# [id number]
--- NOTE | 2018-04-17 03:22 | Progress Notes ---
DATE: SUBJECTIVE: Chart reviewed and the patient interviewed. Also discussed the patient's condition with the staff and reviewed records and labs. The patient is still agitated and she is still actively responding to stimuli. The patient also is still suspicious and seems to be paranoid. She also is still reporting auditory hallucinations, but did not elaborate on those. She is compliant with taking medications and the patient continued to comply with taking her Zyprexa and Depakote. There are no side effects. ASSESSMENT: The patient is still psychotic. TREATMENT PLAN: Continue to monitor behavior and condition closely. Also, continue working on ____ and her irritability and continue to follow up. JOB# [id number]
[2018-04-17] MEDS: Pantoprazole 40 mg EC Tab PO SCH (07:01)
[2018-04-17] MEDS: Fish Oil 1,000 MG SGL PO SCH (08:38)
[2018-04-17] MEDS: Sulfamethoxazole/TMP 800/160mg Tab PO SCH ×2 (08:40→17:09)
[2018-04-17] MEDS: Calcium Carb/Vit D 500 mg/200 U Tab PO SCH (08:40)
[2018-04-17] MEDS: Multivitamin w/ Minerals Tab PO SCH (08:41)
[2018-04-17] MEDS ORDERED: Probiotic Screen MC PRN (13:00)
--- NOTE | 2018-04-18 03:41 | Progress Notes ---
DATE: 04/17/2018 PSYCHIATRIC PROGRESS NOTE SUBJECTIVE: Chart reviewed and the patient interviewed. Also discussed the patient's condition with the staff and reviewed records and labs. The patient is still anxious and she is still withdrawn. The patient also is still in a depressed mood and interacting minimally with others. She also still has episodes of agitation and irritability and wants to be left alone. Otherwise, no side effects of medications. ASSESSMENT: The patient is still depressed and psychotic. TREATMENT PLAN: Continue to monitor behavior and condition closely. Also, continue adjusting psychotropic medications and work on behavioral modification. JOB# [id number]
[2018-04-18] MEDS: Pantoprazole 40 mg EC Tab PO SCH (06:36)
[2018-04-18] MEDS: Lactobacillus Rhamnosus GG 15 Billion CFU CAP.SPRINK PO SCH (09:23)
[2018-04-18] MEDS: Fish Oil 1,000 MG SGL PO SCH (09:23)
[2018-04-18] MEDS: Sulfamethoxazole/TMP 800/160mg Tab PO SCH ×2 (09:23→17:44)
[2018-04-18] MEDS: Multivitamin w/ Minerals Tab PO SCH (09:24)
[2018-04-18] MEDS: Calcium Carb/Vit D 500 mg/200 U Tab PO SCH (09:24)
--- NOTE | 2018-04-18 12:46 | Diagnostic Imaging Report ---
KUB abdominal film HISTORY: Pain, constipation The exam demonstrates nondilated large and small bowel. No free intraperitoneal air. No significant abnormal calcifications. IMPRESSION: 1. Nonspecific bowel gas pattern with no acute radiographic abnormalities
--- NOTE | 2018-04-18 13:04 | Consultation ---
DATE OF CONSULTATION: 04/18/2018 INPATIENT GASTROINTESTINAL CONSULTATION CONSULTING PHYSICIAN: Dr. Salcedo. REASON FOR CONSULTATION: Abnormal CT scan. HISTORY OF PRESENT ILLNESS: The patient is a 73-year-old female with past medical history significant for Alzheimer's disease, gastroesophageal reflux, psychosis and coronary artery disease, who is admitted to the Geropsych Unit for aggressive behavior. The patient normally resides at her nursing facility, but was transferred here as she was behaving erratically. She underwent a medical workup upon arrival that included a CT scan that noted fluid filled stomach and esophagus. It was concerning for possible gastric outlet obstruction, although the patient does not have any nausea, vomiting or other complaint. She notes that she is not having any abdominal pain, although she did vomit yesterday she reports. It should be noted that she is a poor historian. She does think that she has had an endoscopy and colonoscopy before and this was about 10 years ago, although we do not have the report or record of this. PAST MEDICAL HISTORY: Alzheimer's dementia, degenerative joint disease, gastroesophageal reflux, coronary artery disease, osteoporosis, psychosis. PAST SURGICAL HISTORY: Unknown. FAMILY HISTORY: Noncontributory. SOCIAL HISTORY: The patient lives at a custodial. There is no documented history of illicit drug use or alcoholism. REVIEW OF SYSTEMS: Not possible given the patient's inability to meaningfully participate in the interview process. CURRENT MEDICATIONS: Include Maalox, calcium, Depakote, Colace, fish oil, lactobacillus, Ativan, Reglan, Zyprexa, Protonix and Ambien. PHYSICAL EXAMINATION: VITAL SIGNS: Blood pressure is 101/63, pulse 93 beats per minute, temperature 98.0, oxygenation 97%. GENERAL: The patient is lying on her side, alert and oriented x 3, in no apparent distress. HEAD, EARS, EYES, NOSE AND THROAT: Normocephalic and atraumatic appearing head. Pupils are equal and reactive to light. Extraocular muscles are intact. Moist mucous membranes. NECK: Supple. No JVD or thyromegaly or lymphadenopathy. CHEST: Clear to auscultation. CARDIOVASCULAR: S1 and S2 are present, regular rate and rhythm. ABDOMEN: Soft, mild tenderness to palpation in the left lower quadrant. There is no guarding, no rebound, no fluid distention. EXTREMITIES: A 1+ pitting edema with some venous stasis changes. Pulses are not present. SKIN: There is no obvious jaundice. LABORATORY DATA: Laboratories from 04/14/2018 showed white blood cell count 8.0, hemoglobin 13.6 and platelet count 213. Sodium 137, BUN 22, creatinine 1.0. AST is 12, ALT 9, total bilirubin 0.3. IMAGING: Chest CT was performed on 04/15/2018 and shows COPD lung changes with minimal consolidative changes, 9 mm right lower lobe nodule, focal right posterior diaphragmatic fat herniation, significantly distended fluid filled esophagus, hiatal hernia, small pericardial effusion, distended stomach. IMPRESSION: This is a 73-year-old female with history of coronary artery disease, psychosis and gastroesophageal reflux disease, admitted to the hospital for erratic behavior, found to have imaging evidence of a fluid filled esophagus and stomach with nausea and vomiting. 1. Abnormal CT scan with fluid filled esophagus and distended stomach. 2. Nausea and vomiting. 3. Psychosis. 4. History of coronary artery disease. 5. Gastroesophageal reflux disease. DISCUSSION: The imaging findings and the history of some nausea and vomiting are somewhat concerning for possible gastric outlet obstruction morphology and we can further investigate this with upper endoscopy to ensure that we are not missing a gastric malignancy or esophageal malignancy that may be causing these symptoms. Clinically, she does not appear obstructed at this time and is tolerating her diet, although with intermittent nausea and vomiting. Thus, we will plan for EGD on most likely Saturday. RECOMMENDATIONS: 1. Plan for upper endoscopy to further evaluate the esophagus and stomach on Saturday. 2. Continue diet as tolerated for the time being. 3. Continue psychiatric medications as per psychiatrist. 4. We will get a KUB to evaluate for any constipation that may be contributing. Thank you for allowing me to participate in this patient's care. Please call with any further questions. JOB# [id number]
--- NOTE | 2018-04-18 23:56 | Progress Notes ---
DATE: 04/18/2018 SUBJECTIVE: The patient seen and examined. The patient is lying in the bed. The patient denies any chest pain, shortness of breath, palpitation, dizziness. Denies any dysphagia. The patient was able to eat better for last 2 days since the patient is placed on p.o. Reglan. The patient currently lying comfortably. PHYSICAL EXAMINATION: VITAL SIGNS: Temperature 98, pulse is 94, respiratory rate is 18, blood pressure 101/60. HEENT: No facial asymmetry. NECK: Supple, no JVD. HEART: Regular, no murmur. CHEST: Lung equal in expansion, no expiratory wheezing. ABDOMEN: Soft. No guarding or rigidity. Bowel sounds present. No palpable mass. EXTREMITIES: No edema. CLINICAL IMPRESSION: 1. Abnormal CT scan of the chest with distended esophagus and stomach with fluid. 2. Lung nodules. 3. Urinary tract infection. 4. Degenerative joint disease. 5. Psychotic disorder. PLAN: 1. Gastrointestinal consult for upper endoscopy. 2. Continue Reglan and proton-pump inhibitor. 3. Continue antibiotic. 4. Outpatient workup for lung nodules. 5. Psychotic evaluation and management deferred to psychiatrist. 6. General nursing care. 7. Fall precaution. 8. Nutritional support. 9. Follow lab. 10. We will continue to follow this patient during the stay in the hospital. JOB# [id number]
[2018-04-19] MEDS: Pantoprazole 40 mg EC Tab PO SCH (07:03)
[2018-04-19] MEDS: Fish Oil 1,000 MG SGL PO SCH (09:25)
[2018-04-19] MEDS: Sulfamethoxazole/TMP 800/160mg Tab PO SCH ×2 (09:26→17:05)
[2018-04-19] MEDS: Lactobacillus Rhamnosus GG 15 Billion CFU CAP.SPRINK PO SCH (09:26)
[2018-04-19] MEDS: Multivitamin w/ Minerals Tab PO SCH (09:27)
[2018-04-19] MEDS: Calcium Carb/Vit D 500 mg/200 U Tab PO SCH (09:27)
--- NOTE | 2018-04-19 17:36 | Psychiatric Evaluation ---
DATE OF SERVICE: 04/19/2018 SUBJECTIVE: The patient was seen, chart reviewed, and discussed with staff. The patient continues to be depressed, anxious, self-isolating and generally of hope. She has however, been compliant with medications, has not required any p.r.n. medications, eating and sleeping okay. PLAN: We will continue current medications and titrate as needed. PSYCHIATRIC# [id number]
--- NOTE | 2018-04-19 19:19 | GI Progress Note ---
Subjective - Review of Systems Service Date: 04/19/18 Subjective: GI NOTE ARNULFO ORAL DIET. NO N/V. Objective - Results Result Diagrams: 04/14/18 20:30 04/14/18 20:30 Recent Labs: Laboratory Last Values WBC 8.0 Th/cmm (4.8-10.8) 04/14/18 20:30 RBC 4.81 Mil/cmm (3.80-5.20) 04/14/18 20:30 Hgb 13.6 gm/dL (12-16) 04/14/18 20:30 Hct 41.5 % (41.0-60) 04/14/18 20:30 MCV 86.3 fl (81-100) 04/14/18 20:30 MCH 28.2 pg (27.0-31.0) 04/14/18 20:30 MCHC Differential 32.7 pg (28.0-36.0) 04/14/18 20:30 RDW 14.3 % (11.5-20.0) 04/14/18 20:30 Plt Count 213 Th/cmm (150-400) 04/14/18 20:30 MPV 9.0 fl 04/14/18 20:30 Neutrophils % 63.4 % (40.0-80.0) 04/14/18 20:30 Lymphocytes % 25.7 % (20.0-50.0) 04/14/18 20:30 Monocytes % 8.1 % (2.0-10.0) 04/14/18 20:30 Eosinophils % 2.5 % (0.0-5.0) 04/14/18 20: Basophils % 0.3 % (0.0-2.0) 04/14/18 20:30 Sodium 137 mEq/L (136-145) 04/14/18 20:30 Potassium 4.0 mEq/L (3.5-5.1) 04/14/18 20:30 Chloride 103 mEq/L (98-107) 04/14/18 20:30 Carbon Dioxide 24.4 mEq/L (21.0-31.0) 04/14/18 20:30 Anion Gap 13.6 (7.0-16.0) 04/14/18 20:30 BUN 22 mg/dL (7-25) 04/14/18 20:30 Creatinine 1.0 mg/dL (0.6-1.2) 04/14/18 20:30 Est GFR ( Amer) TNP 04/14/18 20:30 Est GFR (Non-Af Amer) TNP 04/14/18 20:30 BUN/Creatinine Ratio 22.0 04/14/18 20:30 Glucose 99 mg/dL (70-105) 04/14/18 20:30 Calcium 9.6 mg/dL (8.6-10.3) 04/14/18 20: Phosphorus 3.3 mg/dL (2.5-5.0) 04/14/18 20: Magnesium 2.0 mg/dL (1.9-2.7) 04/14/18 20: Total Bilirubin 0.3 mg/dL (0.3-1.0) 04/14/18 20:30 AST 12 U/L (13-39) L 04/14/18 20:30 ALT 9 U/L (7-52) 04/14/18 20:30 Alkaline Phosphatase 49 U/L (34-104) 04/14/18 20:30 Total Protein 6.9 gm/dL (6.0-8.3) 04/14/18 20: Albumin 4.0 gm/dL (3.7-5.3) 04/14/18 20: Globulin 2.9 gm/dL 04/14/18 20:30 Albumin/Globulin Ratio 1.4 (1.0-1.8) 04/14/18 20:30 Triglycerides 195 mg/dL (<150) H 04/14/18 20:30 Cholesterol 185 mg/dL (<200) 04/14/18 20:30 LDL Cholesterol Direct 118 mg/dL (75-193) 04/14/18 20:30 HDL Cholesterol 56 mg/dL (23-92) 04/14/18 20: TSH 2.86 uIU/ml (0.34-5.60) 04/14/18 20:30 Urine Source CLEAN C 04/14/18 20:30 Urine Color YELLOW 04/14/18 20:30 Urine Clarity CLOUDY (CLEAR) H 04/14/18 20:30 Urine pH 6.0 (4.6 - 8.0) 04/14/18 20: Ur Specific [place] 1.015 (1.005-1.030) 04/14/18 20:30 Urine Protein NEGATIVE mg/dL (NEGATIVE) 04/14/18 20:30 Urine Glucose (UA) NEGATIVE mg/dL (NEGATIVE) 04/14/18 20:30 Urine Ketones NEGATIVE mg/dL (NEGATIVE) 04/14/18 20:30 Urine Blood NEGATIVE (NEGATIVE) 04/14/18 20:30 Urine Nitrate POSITIVE (NEGATIVE) H 04/14/18 20:30 Urine Bilirubin NEGATIVE (NEGATIVE) 04/14/18 20:30 Urine Urobilinogen 0.2 E.U./dL (0.2 - 1.0) 04/14/18 20:30 Ur Leukocyte Esterase LARGE (NEGATIVE) H 04/14/18 20:30 Urine RBC 2-5 /hpf (0-5) 04/14/18 20:30 Urine WBC 50-100 /hpf (0-5) H 04/14/18 20:30 Ur Epithelial Cells FEW /lpf (FEW) 04/14/18 20:30 Urine Bacteria 4+ /hpf (NONE SEEN) H 04/14/18 20:30 Valproic Acid 15.7 ug/mL (50.0-100.0) L 04/14/18 20:30 - Physical Exam Vitals and I&O: Vital Signs Temp 98.4 F 04/19/18 14:00 Pulse 89 04/19/18 14:00 Resp 18 04/19/18 14:00 BP 94/49 04/19/18 14:00 Pulse Ox 96 04/19/18 14:00 Intake & Output 04/19/18 04/19/18 04/20/18 06:59 18:59 06:59 Intake Total 1300 Balance 1300 Intake: Oral 1300 Other: # Voids 3 # Bowel Movements 0 Stool Characteristics Soft Soft Formed Brown Active Medications: Current Medications Al Hydrox/Mg Hydrox/Simethicone (Maalox) 30 ml PO Q4H PRN PRN Reason: GI DISTRESS Stop: 06/13/18 23:39 Calcium/Vitamin D (Oscal W/Vitamin D) 1 tab PO DAILY MARIA ALEJANDRA Stop: 06/14/18 08:59 Last Admin: 04/19/18 09:27 Dose: 1 tab Divalproex Sodium (Depakote Dr) 125 mg PO Q12HR MARIA ALEJANDRA; Protocol Stop: 06/14/18 08:59 Last Admin: 04/19/18 09:26 Dose: 125 mg Docusate Sodium (Colace) 250 mg PO DAILY [facility] Stop: 06/14/18 08:59 Last Admin: 04/19/18 09:26 Dose: 250 mg Fish Oil ([place] 3) 1,000 mg PO DAILY MARIA ALEJANDRA Stop: 06/14/18 08:59 Last Admin: 04/19/18 09:25 Dose: 1,000 mg Lactobacillus Rhamnosus (Culturelle 15b) 1 each PO DAILY MARIA ALEJANDRA Stop: 06/17/18 08:59 Last Admin: 04/19/18 09:26 Dose: 1 each Lorazepam (Ativan) 0.5 mg PO Q4H PRN; Protocol PRN Reason: Anxiety Stop: 06/13/18 23:25 Last Admin: 04/19/18 17:05 Dose: 0.5 mg Magnesium Hydroxide (Milk Of Magnesia) 30 ml PO HS PRN PRN Reason: Constipation Stop: 06/13/18 23:45 Metoclopramide HCl (Reglan) 5 mg PO BIDWM@1200,1800 [facility] Stop: 06/15/18 17:59 Last Admin: 04/19/18 17:43 Dose: 5 mg Miscellaneous (Probiotic Screen) 1 ea MC PRN PRN PRN Reason: PROTOCOL Stop: 06/16/18 12:59 Olanzapine (Zyprexa) 5 mg PO DAILY [facility]; Protocol Stop: 06/14/18 08:59 Last Admin: 04/19/18 09:27 Dose: 5 mg Olanzapine (Zyprexa) 10 mg PO HS [facility]; Protocol Stop: 06/14/18 20:59 Last Admin: 04/18/18 20:33 Dose: 10 mg Pantoprazole Sodium (Protonix) 40 mg PO QDAC [facility] Stop: 06/14/18 07:29 Last Admin: 04/19/18 07:03 Dose: 40 mg Trimethoprim/Sulfamethoxazole (Bactrim Ds) 1 tab PO BID [facility] Stop: 06/15/18 08:59 Last Admin: 04/19/18 17:05 Dose: 1 tab Zolpidem Tartrate (Ambien) 5 mg PO HS PRN PRN Reason: Insomnia Stop: 06/13/18 23:25 Last Admin: 04/18/18 20:34 Dose: 5 mg General: Alert HEENT: Atraumatic Neck: Supple Cardiovascular: Regular rate Abdomen: Bowel sounds, Soft, no Tender, no Distended - Procedures Procedures: Procedures Procedure Code Date GROUP PSYCHOTHERAPY 73369 01/07/04 OTHER GROUP THERAPY 94.44 01/07/04 Assessment/Plan - Assessment Assessment: IMPRESSION: 1. N/V - BETTER. 2. CT CHEST SHOWED POSSIBLE DILATED ESOPHAGUS AND DISTENDED STOMACH. 3. PSYCH D/O. RECS: 1. POSSIBLE EGD NEXT WEEK. 2. ANTACIDS. 3. ANTIEMETICS. 4. BOWEL REGIMEN NEEDED.
[2018-04-20] MEDS: Pantoprazole 40 mg EC Tab PO SCH (06:49)
[2018-04-20] MEDS: Fish Oil 1,000 MG SGL PO SCH (08:41)
[2018-04-20] MEDS: Calcium Carb/Vit D 500 mg/200 U Tab PO SCH (08:41)
[2018-04-20] MEDS: Lactobacillus Rhamnosus GG 15 Billion CFU CAP.SPRINK PO SCH (08:41)
[2018-04-20] MEDS: Sulfamethoxazole/TMP 800/160mg Tab PO SCH ×2 (08:41→17:10)
[2018-04-20] MEDS: Multivitamin w/ Minerals Tab PO SCH (08:41)
--- NOTE | 2018-04-20 15:58 | Progress Notes ---
DATE: 04/20/2018 SUBJECTIVE: The patient was seen, chart reviewed, and discussed with staff. The patient continues to be very depressed, self-isolating, feelings of hopelessness and helplessness. She has however been compliant with medications, following unit rules with interactions. PLAN: The patient continues to be very depressed, actively symptomatic. It is felt that she will require continued inpatient care facility and treatment. We will monitor the patient on a daily basis for response to medications and titrate meds as needed. [facility]# [id number]
--- NOTE | 2018-04-20 16:07 | Progress Notes ---
DATE: 04/18/2018 The patient is anxious and she seems to be slightly quieter than before. Decreased yelling and screaming. The patient still isolates herself and interacting minimally with peers and with others. The patient denies any intention to harm herself or others and she wants to be left alone and she still isolates herself. Otherwise, the patient is compliant with taking her medications with no side effects of Zyprexa 5 mg in the morning and 10 mg at bedtime. ASSESSMENT: The patient is still confused, but calmer and easier to redirect her. TREATMENT PLAN: Continue to monitor behavior and condition closely. Also, continue adjusting psychotropic medications and followup. [facility]# [id number]
--- NOTE | 2018-04-20 21:28 | GI Progress Note ---
Subjective - Review of Systems Service Date: 04/20/18 Subjective: GI NOTE ARNULFO ORAL DIET. SOME N/V. Objective - Results Result Diagrams: 04/14/18 20:30 04/14/18 20:30 Recent Labs: Laboratory Last Values WBC 8.0 Th/cmm (4.8-10.8) 04/14/18 20:30 RBC 4.81 Mil/cmm (3.80-5.20) 04/14/18 20:30 Hgb 13.6 gm/dL (12-16) 04/14/18 20:30 Hct 41.5 % (41.0-60) 04/14/18 20:30 MCV 86.3 fl (81-100) 04/14/18 20:30 MCH 28.2 pg (27.0-31.0) 04/14/18 20:30 MCHC Differential 32.7 pg (28.0-36.0) 04/14/18 20:30 RDW 14.3 % (11.5-20.0) 04/14/18 20:30 Plt Count 213 Th/cmm (150-400) 04/14/18 20:30 MPV 9.0 fl 04/14/18 20:30 Neutrophils % 63.4 % (40.0-80.0) 04/14/18 20:30 Lymphocytes % 25.7 % (20.0-50.0) 04/14/18 20:30 Monocytes % 8.1 % (2.0-10.0) 04/14/18 20:30 Eosinophils % 2.5 % (0.0-5.0) 04/14/18 20: Basophils % 0.3 % (0.0-2.0) 04/14/18 20:30 Sodium 137 mEq/L (136-145) 04/14/18 20:30 Potassium 4.0 mEq/L (3.5-5.1) 04/14/18 20:30 Chloride 103 mEq/L (98-107) 04/14/18 20:30 Carbon Dioxide 24.4 mEq/L (21.0-31.0) 04/14/18 20:30 Anion Gap 13.6 (7.0-16.0) 04/14/18 20:30 BUN 22 mg/dL (7-25) 04/14/18 20:30 Creatinine 1.0 mg/dL (0.6-1.2) 04/14/18 20:30 Est GFR ( Amer) TNP 04/14/18 20:30 Est GFR (Non-Af Amer) TNP 04/14/18 20:30 BUN/Creatinine Ratio 22.0 04/14/18 20:30 Glucose 99 mg/dL (70-105) 04/14/18 20:30 Calcium 9.6 mg/dL (8.6-10.3) 04/14/18 20: Phosphorus 3.3 mg/dL (2.5-5.0) 04/14/18 20: Magnesium 2.0 mg/dL (1.9-2.7) 04/14/18 20: Total Bilirubin 0.3 mg/dL (0.3-1.0) 04/14/18 20:30 AST 12 U/L (13-39) L 04/14/18 20:30 ALT 9 U/L (7-52) 04/14/18 20:30 Alkaline Phosphatase 49 U/L (34-104) 04/14/18 20:30 Total Protein 6.9 gm/dL (6.0-8.3) 04/14/18 20: Albumin 4.0 gm/dL (3.7-5.3) 04/14/18 20: Globulin 2.9 gm/dL 04/14/18 20:30 Albumin/Globulin Ratio 1.4 (1.0-1.8) 04/14/18 20:30 Triglycerides 195 mg/dL (<150) H 04/14/18 20:30 Cholesterol 185 mg/dL (<200) 04/14/18 20:30 LDL Cholesterol Direct 118 mg/dL (75-193) 04/14/18 20:30 HDL Cholesterol 56 mg/dL (23-92) 04/14/18 20: TSH 2.86 uIU/ml (0.34-5.60) 04/14/18 20:30 Urine Source CLEAN C 04/14/18 20:30 Urine Color YELLOW 04/14/18 20:30 Urine Clarity CLOUDY (CLEAR) H 04/14/18 20:30 Urine pH 6.0 (4.6 - 8.0) 04/14/18 20: Ur Specific [place] 1.015 (1.005-1.030) 04/14/18 20:30 Urine Protein NEGATIVE mg/dL (NEGATIVE) 04/14/18 20:30 Urine Glucose (UA) NEGATIVE mg/dL (NEGATIVE) 04/14/18 20:30 Urine Ketones NEGATIVE mg/dL (NEGATIVE) 04/14/18 20:30 Urine Blood NEGATIVE (NEGATIVE) 04/14/18 20:30 Urine Nitrate POSITIVE (NEGATIVE) H 04/14/18 20:30 Urine Bilirubin NEGATIVE (NEGATIVE) 04/14/18 20:30 Urine Urobilinogen 0.2 E.U./dL (0.2 - 1.0) 04/14/18 20:30 Ur Leukocyte Esterase LARGE (NEGATIVE) H 04/14/18 20:30 Urine RBC 2-5 /hpf (0-5) 04/14/18 20:30 Urine WBC 50-100 /hpf (0-5) H 04/14/18 20:30 Ur Epithelial Cells FEW /lpf (FEW) 04/14/18 20:30 Urine Bacteria 4+ /hpf (NONE SEEN) H 04/14/18 20:30 Valproic Acid 15.7 ug/mL (50.0-100.0) L 04/14/18 20:30 - Physical Exam Vitals and I&O: Vital Signs Temp 98.8 F 04/20/18 20:38 Pulse 101 04/20/18 20:38 Resp 20 04/20/18 20:38 BP 105/58 04/20/18 20:38 Pulse Ox 96 04/20/18 20:38 Intake & Output 04/20/18 04/20/18 04/21/18 06:59 18:59 06:59 Intake Total 1400 120 Balance 1400 120 Intake: Oral 1400 120 Other: # Voids 3 3 # Bowel Movements 0 0 Stool Characteristics Soft Soft Active Medications: Current Medications Al Hydrox/Mg Hydrox/Simethicone (Maalox) 30 ml PO Q4H PRN PRN Reason: GI DISTRESS Stop: 06/13/18 23:39 Calcium/Vitamin D (Oscal W/Vitamin D) 1 tab PO DAILY [facility] Stop: 06/14/18 08:59 Last Admin: 04/20/18 08:41 Dose: 1 tab Divalproex Sodium (Depakote Dr) 125 mg PO Q12HR [facility]; Protocol Stop: 06/14/18 08:59 Last Admin: 04/20/18 21:09 Dose: 125 mg Docusate Sodium (Colace) 250 mg PO DAILY [facility] Stop: 06/14/18 08:59 Last Admin: 04/20/18 08:41 Dose: 250 mg Fish Oil ([place] 3) 1,000 mg PO DAILY [facility] Stop: 06/14/18 08:59 Last Admin: 04/20/18 08:41 Dose: 1,000 mg Lactobacillus Rhamnosus (Culturelle 15b) 1 each PO DAILY [facility] Stop: 06/17/18 08:59 Last Admin: 04/20/18 08:41 Dose: 1 each Lorazepam (Ativan) 0.5 mg PO Q4H PRN; Protocol PRN Reason: Anxiety Stop: 06/13/18 23:25 Last Admin: 04/20/18 08:40 Dose: 0.5 mg Magnesium Hydroxide (Milk Of Magnesia) 30 ml PO HS PRN PRN Reason: Constipation Stop: 06/13/18 23:45 Metoclopramide HCl (Reglan) 5 mg PO BIDWM@1200,1800 [facility] Stop: 06/15/18 17:59 Last Admin: 04/20/18 17:09 Dose: 5 mg Miscellaneous (Probiotic Screen) 1 ea MC PRN PRN PRN Reason: PROTOCOL Stop: 06/16/18 12:59 Olanzapine (Zyprexa) 5 mg PO DAILY [facility]; Protocol Stop: 06/14/18 08:59 Last Admin: 04/20/18 08:41 Dose: 5 mg Olanzapine (Zyprexa) 10 mg PO HS [facility]; Protocol Stop: 06/14/18 20:59 Last Admin: 04/20/18 21:09 Dose: 10 mg Pantoprazole Sodium (Protonix) 40 mg PO QDAC [facility] Stop: 06/14/18 07:29 Last Admin: 04/20/18 06:49 Dose: 40 mg Trimethoprim/Sulfamethoxazole (Bactrim Ds) 1 tab PO BID [facility] Stop: 06/15/18 08:59 Last Admin: 04/20/18 17:10 Dose: 1 tab Zolpidem Tartrate (Ambien) 5 mg PO HS PRN PRN Reason: Insomnia Stop: 06/13/18 23:25 Last Admin: 04/20/18 21:09 Dose: 5 mg General: Alert HEENT: Atraumatic Neck: Supple Cardiovascular: Regular rate Abdomen: Bowel sounds, Soft, no Tender, no Distended - Procedures Procedures: Procedures Procedure Code Date GROUP PSYCHOTHERAPY 81822 01/07/04 OTHER GROUP THERAPY 94.44 01/07/04 Assessment/Plan - Assessment Assessment: IMPRESSION: 1. N/V - BETTER. 2. CT CHEST SHOWED POSSIBLE DILATED ESOPHAGUS AND DISTENDED STOMACH. 3. PSYCH D/O. RECS: 1. WILL PLAN EGD FOR 04/22 PENDING CONSENT AND GEROPSYCH FEASIBILITY. 2. ANTACIDS. 3. ANTIEMETICS. 4. BOWEL REGIMEN NEEDED.
[2018-04-21] MEDS: Pantoprazole 40 mg EC Tab PO SCH (06:57)
--- NOTE | 2018-04-21 07:10 | GI Progress Note ---
Subjective - Review of Systems Service Date: 04/21/18 Subjective: GI NOTE AR[facility] ORAL DIET. NO N/V YESTERDAY. HAD BM. Objective - Results Result Diagrams: 04/14/18 20:30 04/14/18 20:30 Recent Labs: Laboratory Last Values WBC 8.0 Th/cmm (4.8-10.8) 04/14/18 20:30 RBC 4.81 Mil/cmm (3.80-5.20) 04/14/18 20:30 Hgb 13.6 gm/dL (12-16) 04/14/18 20:30 Hct 41.5 % (41.0-60) 04/14/18 20:30 MCV 86.3 fl (81-100) 04/14/18 20:30 MCH 28.2 pg (27.0-31.0) 04/14/18 20:30 MCHC Differential 32.7 pg (28.0-36.0) 04/14/18 20:30 RDW 14.3 % (11.5-20.0) 04/14/18 20:30 Plt Count 213 Th/cmm (150-400) 04/14/18 20:30 MPV 9.0 fl 04/14/18 20:30 Neutrophils % 63.4 % (40.0-80.0) 04/14/18 20:30 Lymphocytes % 25.7 % (20.0-50.0) 04/14/18 20:30 Monocytes % 8.1 % (2.0-10.0) 04/14/18 20: Eosinophils % 2.5 % (0.0-5.0) 04/14/18 20: Basophils % 0.3 % (0.0-2.0) 04/14/18 20:30 Sodium 137 mEq/L (136-145) 04/14/18 20:30 Potassium 4.0 mEq/L (3.5-5.1) 04/14/18 20:30 Chloride 103 mEq/L (98-107) 04/14/18 20:30 Carbon Dioxide 24.4 mEq/L (21.0-31.0) 04/14/18 20:30 Anion Gap 13.6 (7.0-16.0) 04/14/18 20:30 BUN 22 mg/dL (7-25) 04/14/18 20:30 Creatinine 1.0 mg/dL (0.6-1.2) 04/14/18 20:30 Est GFR ( Amer) TNP 04/14/18 20:30 Est GFR (Non-Af Amer) TNP 04/14/18 20:30 BUN/Creatinine Ratio 22.0 04/14/18 20:30 Glucose 99 mg/dL (70-105) 04/14/18 20:30 Calcium 9.6 mg/dL (8.6-10.3) 04/14/18 20: Phosphorus 3.3 mg/dL (2.5-5.0) 04/14/18 20: Magnesium 2.0 mg/dL (1.9-2.7) 04/14/18 20: Total Bilirubin 0.3 mg/dL (0.3-1.0) 04/14/18 20:30 AST 12 U/L (13-39) L 04/14/18 20:30 ALT 9 U/L (7-52) 04/14/18 20:30 Alkaline Phosphatase 49 U/L (34-104) 04/14/18 20:30 Total Protein 6.9 gm/dL (6.0-8.3) 04/14/18 20:30 Albumin 4.0 gm/dL (3.7-5.3) 04/14/18 20: Globulin 2.9 gm/dL 04/14/18 20:30 Albumin/Globulin Ratio 1.4 (1.0-1.8) 04/14/18 20:30 Triglycerides 195 mg/dL (<150) H 04/14/18 20:30 Cholesterol 185 mg/dL (<200) 04/14/18 20:30 LDL Cholesterol Direct 118 mg/dL (75-193) 04/14/18 20:30 HDL Cholesterol 56 mg/dL (23-92) 04/14/18 20: TSH 2.86 uIU/ml (0.34-5.60) 04/14/18 20:30 Urine Source CLEAN C 04/14/18 20:30 Urine Color YELLOW 04/14/18 20:30 Urine Clarity CLOUDY (CLEAR) H 04/14/18 20:30 Urine pH 6.0 (4.6 - 8.0) 04/14/18 20:30 Ur Specific [place] 1.015 (1.005-1.030) 04/14/18 20:30 Urine Protein NEGATIVE mg/dL (NEGATIVE) 04/14/18 20:30 Urine Glucose (UA) NEGATIVE mg/dL (NEGATIVE) 04/14/18 20:30 Urine Ketones NEGATIVE mg/dL (NEGATIVE) 04/14/18 20:30 Urine Blood NEGATIVE (NEGATIVE) 04/14/18 20:30 Urine Nitrate POSITIVE (NEGATIVE) H 04/14/18 20:30 Urine Bilirubin NEGATIVE (NEGATIVE) 04/14/18 20:30 Urine Urobilinogen 0.2 E.U./dL (0.2 - 1.0) 04/14/18 20:30 Ur Leukocyte Esterase LARGE (NEGATIVE) H 04/14/18 20:30 Urine RBC 2-5 /hpf (0-5) 04/14/18 20:30 Urine WBC 50-100 /hpf (0-5) H 04/14/18 20:30 Ur Epithelial Cells FEW /lpf (FEW) 04/14/18 20:30 Urine Bacteria 4+ /hpf (NONE SEEN) H 04/14/18 20:30 Valproic Acid 15.7 ug/mL (50.0-100.0) L 04/14/18 20:30 - Physical Exam Vitals and I&O: Vital Signs Temp 97.8 F 04/21/18 06:06 Pulse 64 04/21/18 06:06 Resp 19 04/21/18 06:06 BP 103/74 04/21/18 06:06 Pulse Ox 97 04/21/18 06:06 Intake & Output 04/20/18 04/21/18 04/21/18 18:59 06:59 18:59 Intake Total 1400 120 Balance 1400 120 Intake: Oral 1400 120 Other: # Voids 3 1 # Bowel Movements 0 0 Stool Characteristics Soft Active Medications: Current Medications Al Hydrox/Mg Hydrox/Simethicone (Maalox) 30 ml PO Q4H PRN PRN Reason: GI DISTRESS Stop: 06/13/18 23:39 Calcium/Vitamin D (Oscal W/Vitamin D) 1 tab PO DAILY [facility] Stop: 06/14/18 08:59 Last Admin: 04/20/18 08:41 Dose: 1 tab Divalproex Sodium (Depakote Dr) 125 mg PO Q12HR [facility]; Protocol Stop: 06/14/18 08:59 Last Admin: 04/20/18 21:09 Dose: 125 mg Docusate Sodium (Colace) 250 mg PO DAILY [facility] Stop: 06/14/18 08:59 Last Admin: 04/20/18 08:41 Dose: 250 mg Fish Oil ([place] 3) 1,000 mg PO DAILY [facility] Stop: 06/14/18 08:59 Last Admin: 04/20/18 08:41 Dose: 1,000 mg Lactobacillus Rhamnosus (Culturelle 15b) 1 each PO DAILY [facility] Stop: 06/17/18 08:59 Last Admin: 04/20/18 08:41 Dose: 1 each Lorazepam (Ativan) 0.5 mg PO Q4H PRN; Protocol PRN Reason: Anxiety Stop: 06/13/18 23:25 Last Admin: 04/20/18 08:40 Dose: 0.5 mg Magnesium Hydroxide (Milk Of Magnesia) 30 ml PO HS PRN PRN Reason: Constipation Stop: 06/13/18 23:45 Metoclopramide HCl (Reglan) 5 mg PO BIDWM@1200,1800 [facility] Stop: 06/15/18 17:59 Last Admin: 04/20/18 17:09 Dose: 5 mg Miscellaneous (Probiotic Screen) 1 ea MC PRN PRN PRN Reason: PROTOCOL Stop: 06/16/18 12:59 Olanzapine (Zyprexa) 5 mg PO DAILY [facility]; Protocol Stop: 06/14/18 08:59 Last Admin: 04/20/18 08:41 Dose: 5 mg Olanzapine (Zyprexa) 10 mg PO HS [facility]; Protocol Stop: 06/14/18 20:59 Last Admin: 04/20/18 21:09 Dose: 10 mg Pantoprazole Sodium (Protonix) 40 mg PO QDAC [facility] Stop: 06/14/18 07:29 Last Admin: 04/21/18 06:57 Dose: 40 mg Trimethoprim/Sulfamethoxazole (Bactrim Ds) 1 tab PO BID [facility] Stop: 06/15/18 08:59 Last Admin: 04/20/18 17:10 Dose: 1 tab Zolpidem Tartrate (Ambien) 5 mg PO HS PRN PRN Reason: Insomnia Stop: 06/13/18 23:25 Last Admin: 12/02/18 21:09 Dose: 5 mg General: No acute distress HEENT: Atraumatic Neck: Supple Cardiovascular: Regular rate Abdomen: Bowel sounds, Soft, no Tender, no Distended - Procedures Procedures: Procedures Procedure Code Date GROUP PSYCHOTHERAPY 00312 01/07/04 OTHER GROUP THERAPY 94.44 01/07/04 Assessment/Plan - Assessment Assessment: IMPRESSION: 1. N/V - BETTER. 2. CT CHEST SHOWED POSSIBLE DILATED ESOPHAGUS AND DISTENDED STOMACH. 3. PSYCH D/O. RECS: 1. WILL PLAN EGD FOR 04/22 PENDING CONSENT AND GEROPSYCH FEASIBILITY. 2. PROTONIX. 3. REGLAN. 4. BOWEL REGIMEN NEEDED.
[2018-04-21] MEDS: Sulfamethoxazole/TMP 800/160mg Tab PO SCH ×2 (08:44→17:02)
[2018-04-21] MEDS: Lactobacillus Rhamnosus GG 15 Billion CFU CAP.SPRINK PO SCH (08:46)
[2018-04-21] MEDS: Calcium Carb/Vit D 500 mg/200 U Tab PO SCH (08:46)
[2018-04-21] MEDS: Multivitamin w/ Minerals Tab PO SCH (08:47)
[2018-04-21] MEDS: Fish Oil 1,000 MG SGL PO SCH (08:47)
--- NOTE | 2018-04-22 05:18 | Progress Notes ---
DATE: 04/21/2018 SUBJECTIVE: Chart reviewed and the patient interviewed. Also discussed the patient's condition with the staff and reviewed records and labs. The patient continued to be confused and forgetful. The patient also is still suspicious and is paranoid. Also, she is still unpredictable and resisting care. Otherwise, the patient continued to comply with taking her medications with no side effects of medications. ASSESSMENT: The patient is still confused and psychotic. TREATMENT PLAN: Continue to monitor behavior and condition closely. Also, continue adjusting psychotropic medications and follow up closely. JOB# [id number]
[2018-04-22] MEDS: Pantoprazole 40 mg EC Tab PO SCH (06:55)
[2018-04-22 07:08] LABS: % BASOPHILS 0.7 % (0.0-2.0); % EOSINOPHILS 4.5 % (0.0-5.0); % LYMPHOCYTES 33.9 % (20.0-50.0); % MONOCYTES 8.4 % (2.0-10.0); % NEUTROPHILS 52.5 % (40.0-80.0); EOSINOPHILE ABSOLUTE 0.3 Th/cmm (0.1-0.4); HEMATOCRIT 38.9 % (41.0-60); HEMOGLOBIN 13.1 gm/dL (12-16); LYMPHOCYTE ABSOLUTE 2.2 Th/cmm (1.5-3.0); MEAN CELL VOLUME 85.6 fl (81-100); MEAN CORPUSCULAR HEMOGLOBIN 28.8 pg (27.0-31.0); MEAN CORPUSCULAR HGB CONC 33.7 pg (28.0-36.0); MEAN PLATELET VOLUME 8.5 fl; MONOCYTE ABSOLUTE 0.5 Th/cmm (0.3-1.0); NEUTROPHILE ABSOLUTE 3.5 Th/cmm (1.8-8.0); PLATELET COUNT 227 Th/cmm (150-400); RED BLOOD COUNT 4.54 Mil/cmm (3.80-5.20); RED CELL DISTRIBUTION WIDTH 14.2 % (11.5-20.0); WHITE BLOOD COUNT 6.5 Th/cmm (4.8-10.8)
[2018-04-22 07:21] LABS: INR 2.47 (0.5-1.4); PROTHROMBIN TIME (TEST) 24.6 SECONDS (9.5-11.5)
[2018-04-22 07:35] LABS: ANION GAP 14.6 (7.0-16.0); BUN - UREA NITROGEN 22 mg/dL (7-25); CARBON DIOXIDE 24.1 mEq/L (21.0-31.0); CHLORIDE 103 mEq/L (98-107); CREATININE - SERUM 1.2 mg/dL (0.6-1.2); GLUCOSE 101 mg/dL (70-105); POTASSIUM SERUM 4.7 mEq/L (3.5-5.1); SODIUM SERUM 137 mEq/L (136-145)
[2018-04-22] MEDS: Lactobacillus Rhamnosus GG 15 Billion CFU CAP.SPRINK PO SCH (08:31)
[2018-04-22] MEDS: Fish Oil 1,000 MG SGL PO SCH (08:31)
[2018-04-22] MEDS: Multivitamin w/ Minerals Tab PO SCH (08:31)
[2018-04-22] MEDS: Calcium Carb/Vit D 500 mg/200 U Tab PO SCH (08:31)
--- NOTE | 2018-04-22 09:36 | GI Progress Note ---
Subjective - Review of Systems Service Date: 04/22/18 Subjective: GI NOTE ARN[facility] ORAL DIET. NO N/V. HAD BM. Objective - Results Result Diagrams: 04/22/18 06:40 04/22/18 06:40 Recent Labs: Laboratory Last Values WBC 6.5 Th/cmm (4.8-10.8) 04/22/18 06:40 RBC 4.54 Mil/cmm (3.80-5.20) 04/22/18 06:40 Hgb 13.1 gm/dL (12-16) 04/22/18 06:40 Hct 38.9 % (41.0-60) L 04/22/18 06:40 MCV 85.6 fl (81-100) 04/22/18 06:40 MCH 28.8 pg (27.0-31.0) 04/22/18 06:40 MCHC Differential 33.7 pg (28.0-36.0) 04/22/18 06:40 RDW 14.2 % (11.5-20.0) 04/22/18 06:40 Plt Count 227 Th/cmm (150-400) 04/22/18 06:40 MPV 8.5 fl 04/22/18 06:40 Neutrophils % 52.5 % (40.0-80.0) 04/22/18 06:40 Lymphocytes % 33.9 % (20.0-50.0) 04/22/18 06:40 Monocytes % 8.4 % (2.0-10.0) 04/22/18 06:40 Eosinophils % 4.5 % (0.0-5.0) 04/22/18 06:40 Basophils % 0.7 % (0.0-2.0) 04/22/18 06:40 PT 24.6 SECONDS (9.5-11.5) H 04/22/18 06:40 INR 2.47 (0.5-1.4) H 04/22/18 06:40 Sodium 137 mEq/L (136-145) 04/22/18 06:40 Potassium 4.7 mEq/L (3.5-5.1) 04/22/18 06:40 Chloride 103 mEq/L (98-107) 04/22/18 06:40 Carbon Dioxide 24.1 mEq/L (21.0-31.0) 04/22/18 06:40 Anion Gap 14.6 (7.0-16.0) 04/22/18 06:40 BUN 22 mg/dL (7-25) 04/22/18 06:40 Creatinine 1.2 mg/dL (0.6-1.2) 04/22/18 06:40 Est GFR ( Amer) TNP 04/22/18 06:40 Est GFR (Non-Af Amer) TNP 04/22/18 06:40 BUN/Creatinine Ratio 18.3 04/22/18 06:40 Glucose 101 mg/dL (70-105) 04/22/18 06:40 Calcium 10.0 mg/dL (8.6-10.3) 04/22/18 06:40 Phosphorus 3.3 mg/dL (2.5-5.0) 04/14/18 20:30 Magnesium 2.0 mg/dL (1.9-2.7) 04/14/18 20:30 Total Bilirubin 0.3 mg/dL (0.3-1.0) 04/14/18 20:30 AST 12 U/L (13-39) L 04/14/18 20:30 ALT 9 U/L (7-52) 04/14/18 20:30 Alkaline Phosphatase 49 U/L (34-104) 04/14/18 20:30 Total Protein 6.9 gm/dL (6.0-8.3) 04/14/18 20:30 Albumin 4.0 gm/dL (3.7-5.3) 04/14/18 20:30 Globulin 2.9 gm/dL 04/14/18 20:30 Albumin/Globulin Ratio 1.4 (1.0-1.8) 04/14/18 20:30 Triglycerides 195 mg/dL (<150) H 04/14/18 20:30 Cholesterol 185 mg/dL (<200) 04/14/18 20:30 LDL Cholesterol Direct 118 mg/dL (75-193) 04/14/18 20:30 HDL Cholesterol 56 mg/dL (23-92) 04/14/18 20:30 TSH 2.86 uIU/ml (0.34-5.60) 04/14/18 20:30 Urine Source CLEAN C 04/14/18 20:30 Urine Color YELLOW 04/14/18 20:30 Urine Clarity CLOUDY (CLEAR) H 04/14/18 20:30 Urine pH 6.0 (4.6 - 8.0) 04/14/18 20:30 Ur Specific [place] 1.015 (1.005-1.030) 04/14/18 20:30 Urine Protein NEGATIVE mg/dL (NEGATIVE) 04/14/18 20:30 Urine Glucose (UA) NEGATIVE mg/dL (NEGATIVE) 04/14/18 20:30 Urine Ketones NEGATIVE mg/dL (NEGATIVE) 04/14/18 20:30 Urine Blood NEGATIVE (NEGATIVE) 04/14/18 20:30 Urine Nitrate POSITIVE (NEGATIVE) H 04/14/18 20:30 Urine Bilirubin NEGATIVE (NEGATIVE) 04/14/18 20:30 Urine Urobilinogen 0.2 E.U./dL (0.2 - 1.0) 04/14/18 20:30 Ur Leukocyte Esterase LARGE (NEGATIVE) H 04/14/18 20:30 Urine RBC 2-5 /hpf (0-5) 04/14/18 20:30 Urine WBC 50-100 /hpf (0-5) H 04/14/18 20:30 Ur Epithelial Cells FEW /lpf (FEW) 04/14/18 20:30 Urine Bacteria 4+ /hpf (NONE SEEN) H 04/14/18 20:30 Valproic Acid 15.7 ug/mL (50.0-100.0) L 04/14/18 20:30 - Physical Exam Vitals and I&O: Vital Signs Temp 97.6 F 04/22/18 06:34 Pulse 107 04/22/18 06:34 Resp 20 04/22/18 06:34 BP 107/66 04/22/18 06:34 Pulse Ox 96 04/22/18 06:34 Intake & Output 04/21/18 04/22/18 04/22/18 18:59 06:59 18:59 Intake Total 800 240 Balance 800 240 Intake: Oral 800 240 Other: # Voids 3 1 # Bowel Movements 1 0 Active Medications: Current Medications Al Hydrox/Mg Hydrox/Simethicone (Maalox) 30 ml PO Q4H PRN PRN Reason: GI DISTRESS Stop: 06/13/18 23:39 Calcium/Vitamin D (Oscal W/Vitamin D) 1 tab PO DAILY [facility] Stop: 06/14/18 08:59 Last Admin: 04/22/18 08:31 Dose: 1 tab Divalproex Sodium (Depakote Dr) 125 mg PO Q12HR [facility]; Protocol Stop: 06/14/18 08:59 Last Admin: 04/22/18 08:31 Dose: 125 mg Docusate Sodium (Colace) 250 mg PO DAILY [facility] Stop: 06/14/18 08:59 Last Admin: 04/22/18 08:31 Dose: 250 mg Fish Oil ([place] 3) 1,000 mg PO DAILY [facility] Stop: 06/14/18 08:59 Last Admin: 04/22/18 08:31 Dose: 1,000 mg Lactobacillus Rhamnosus (Culturelle 15b) 1 each PO DAILY [facility] Stop: 06/17/18 08:59 Last Admin: 04/22/18 08:31 Dose: 1 each Lorazepam (Ativan) 0.5 mg PO Q4H PRN; Protocol PRN Reason: Anxiety Stop: 06/13/18 23:25 Last Admin: 04/20/18 08:40 Dose: 0.5 mg Magnesium Hydroxide (Milk Of Magnesia) 30 ml PO HS PRN PRN Reason: Constipation Stop: 06/13/18 23:45 Metoclopramide HCl (Reglan) 5 mg PO BIDWM@1200,1800 [facility] Stop: 06/15/18 17:59 Last Admin: 04/21/18 18:27 Dose: 5 mg Miscellaneous (Probiotic Screen) 1 ea MC PRN PRN PRN Reason: PROTOCOL Stop: 06/16/18 12:59 Olanzapine (Zyprexa) 5 mg PO DAILY [facility]; Protocol Stop: 06/14/18 08:59 Last Admin: 04/22/18 08:31 Dose: 5 mg Olanzapine (Zyprexa) 10 mg PO HS [facility]; Protocol Stop: 06/14/18 20:59 Last Admin: 04/21/18 21:36 Dose: 10 mg Pantoprazole Sodium (Protonix) 40 mg PO QDAC [facility] Stop: 06/14/18 07:29 Last Admin: 04/22/18 06:55 Dose: 40 mg Zolpidem Tartrate (Ambien) 5 mg PO HS PRN PRN Reason: Insomnia Stop: 06/13/18 23:25 Last Admin: 04/21/18 21:36 Dose: 5 mg General: No acute distress HEENT: Atraumatic Neck: Supple Cardiovascular: Regular rate Abdomen: Bowel sounds, Soft, no Tender, no Distended - Procedures Procedures: Procedures Procedure Code Date GROUP PSYCHOTHERAPY 17075 01/07/04 OTHER GROUP THERAPY 94.44 01/07/04 Assessment/Plan - Assessment Assessment: IMPRESSION: 1. N/V - BETTER. 2. CT CHEST SHOWED POSSIBLE DILATED ESOPHAGUS AND DISTENDED STOMACH. 3. PSYCH D/O. RECS: 1. EGD CANCELLED SYMPTOMS HAVE RESOLVED. 2. PROTONIX. 3. REGLAN. 4. BOWEL REGIMEN NEEDED. 5. ORAL DIET ARNULFO. WILL SEE HERE NEEDED. PLEASE CALL US IF QUESTIONS.
[2018-04-23] MEDS: Pantoprazole 40 mg EC Tab PO SCH (06:46)
[2018-04-23] MEDS: Fish Oil 1,000 MG SGL PO SCH (08:40)
[2018-04-23] MEDS: Multivitamin w/ Minerals Tab PO SCH (08:40)
[2018-04-23] MEDS: Lactobacillus Rhamnosus GG 15 Billion CFU CAP.SPRINK PO SCH (08:40)
[2018-04-23] MEDS: Calcium Carb/Vit D 500 mg/200 U Tab PO SCH (08:40)
[2018-04-24] MEDS: Pantoprazole 40 mg EC Tab PO SCH (06:42)
[2018-04-24] MEDS: Lactobacillus Rhamnosus GG 15 Billion CFU CAP.SPRINK PO SCH (08:42)
[2018-04-24] MEDS: Fish Oil 1,000 MG SGL PO SCH (08:43)
[2018-04-24] MEDS: Multivitamin w/ Minerals Tab PO SCH (08:43)
[2018-04-24] MEDS: Calcium Carb/Vit D 500 mg/200 U Tab PO SCH (08:44)
--- NOTE | 2018-04-24 14:14 | Progress Notes ---
DATE: 04/22/2018 DATE OF SERVICE: 04/22/2018 SUBJECTIVE: Chart reviewed and the patient interviewed. Also discussed the patient's condition with the staff and reviewed records and labs. The patient is still calm and is cooperative. The patient also has been less agitated and less irritable. Also staff reporting that the patient is easier to redirect her, and no major behavior problems. She is also compliant with taking her medications with no side effects of medications. ASSESSMENT: The patient is calmer and less agitated. TREATMENT PLAN: We will discharge the patient today back to [place] and will continue to follow up her behavior and her condition closely. JOB# [id number]
--- NOTE | 2018-04-24 15:48 | Progress Notes ---
DATE: IDENTIFICATION: A 73-year-old female. SUBJECTIVE: The patient seen and examined. The patient was seen by Gastroenterology. Plan was to do upper endoscopy, but needed to have a consent from the [facility]. It was decided that the patient was telling, eating well. We can hold the EGD and have outpatient workup to be done later. The patient has no nausea, no vomiting, no fever, or chills. PHYSICAL EXAMINATION: VITAL SIGNS: Temperature 96.9, pulse is 100, respiratory rate 20, and blood pressure 98/54. HEENT: No facial asymmetry. NECK: Supple, no JVD. HEART: Regular. CHEST AND LUNGS: Equal in expansion, no expiratory wheezing. ABDOMEN: Soft. No guarding, no rigidity. Bowel sounds present. No palpable mass. EXTREMITIES: No edema, no cyanosis. NEUROLOGIC: Alert, awake, follows commands. CLINICAL IMPRESSION: Abnormal CT scan of the chest. The patient has responded to p.o. Reglan and proton pump inhibitor. The patient's EGD will be done at a later date since the patient does not need any acute intervention at this time. Continue to provide medical management for her medical illness at this time. We will continue to provide fall precautions, general nursing care, and have psych medication and psych followup as per psychiatrist. Care plan has been reviewed and discussed. JOB# [id number]
--- NOTE | 2018-04-24 18:33 | Progress Notes ---
DATE: 04/24/2018 Case was discussed with staff of the patient, reviewed records. Covering for Dr. Bose. The patient is a well-known case to me as I have seen him before covering for Dr. Bose. The patient continues to be hearing voices. Continues to be suspicious, paranoid, and psychotic. She is compliant with the medication with no side effects, no sedation, no nausea, no extrapyramidal symptoms and she is on Depakote 125 mg twice a day and Zyprexa 5 mg in the morning and 10 mg at bedtime with no side effects, no sedation, no nausea, no extrapyramidal symptoms and I will be increasing her Zyprexa in the morning to 10 mg and will continue outpatient group therapy, milieu therapy, adjust the medication as needed. [facility]# [id number]
--- NOTE | 2018-04-24 21:58 | Progress Notes ---
DATE: 04/23/2018 SUBJECTIVE: Chart reviewed and the patient interviewed. Also discussed the patient's condition with the staff and reviewed records and labs. The patient continued to be anxious, but no major behavioral problems according to the staff and according to my interview. The patient is calm and cooperative. She was supposed to be discharged yesterday, but staff reported that she is not discharged because of the conservator and the people who are visiting her said that she is not acting herself and she is agitated. The patient is supposed to go to [facility] and [place] accepted the patient back. At the same time discharge was not happening yesterday and today on my evaluation, the patient was calm and cooperative and compliant with medications. At the same time, we will continue to work on discharge and followup. JOB# [id number]
== END 2018-04-24 11:45 | DRG 885 ==
LOC: ER 18:13 → GERO 19:32
PROVIDERS: ADMIT Psychiatry & Neurology Psychiatry; ATTEND Psychiatry & Neurology Psychiatry
DX: F25.9 Schizoaffective disorder, unspecified (principal); N39.0 Urinary tract infection, site not specified; I31.3 Pericardial effusion (noninflammatory); F29 Unspecified psychosis not due to a substance or known physiological condition; G30.9 Alzheimer's disease, unspecified; F02.80 Dementia in other diseases classified elsewhere, unspecified severity, without behavioral disturbance, psychotic disturbance, mood disturbance, and anxiety; M19.90 Unspecified osteoarthritis, unspecified site; K21.9 Gastro-esophageal reflux disease without esophagitis; M81.0 Age-related osteoporosis without current pathological fracture; I25.10 Atherosclerotic heart disease of native coronary artery without angina pectoris; K29.70 Gastritis, unspecified, without bleeding; R91.1 Solitary pulmonary nodule; R11.2 Nausea with vomiting, unspecified; K31.89 Other diseases of stomach and duodenum; J44.9 Chronic obstructive pulmonary disease, unspecified; K44.9 Diaphragmatic hernia without obstruction or gangrene; Z88.8 Allergy status to other drugs, medicaments and biological substances
CPT/HCPCS: 36415-UA; 71045-TC; 71250-TC; 74000-TC; 80048-TC; 80053-TC; 80061-TC; 80164-TC; 81001-TC; 83036-90; 83735-TC; 84100-TC; 84443-TC; 85025-TC; 85610-TC; 87086-90; J0696; J7051; Z7610